=== PATIENT | female | born 1995 | race Caucasian/White ===

== ENCOUNTER 2016-08-11 00:12 | Emergency (ER) | payer OTHER ==
[2016-08-11 00:28] VITALS: PULSE 84
[2016-08-11] MEDS ORDERED: AZITHROMYCIN 250 MG TAB PO STA (00:55)
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
[2016-08-11 01:34] VITALS: BP 126/92; RESP 18; TEMP 98.2
== END 2016-08-11 01:33 | disposition home or self-care (01) ==
LOC: EC 00:12
DX: J04.0 Acute laryngitis (principal); Z86.14 Personal history of Methicillin resistant Staphylococcus aureus infection; Z88.0 Allergy status to penicillin
CPT/HCPCS: 99283

== ENCOUNTER 2016-08-28 20:58 | Emergency (ER) | payer OTHER ==
[2016-08-28 21:22] VITALS: BP 139/72; PULSE 105; RESP 20; TEMP 98.1
[2016-08-28] MEDS ORDERED: KETOROLAC 60 MG/2 ML VIAL IM STA (21:38)
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
== END 2016-08-28 22:13 | disposition home or self-care (01) ==
LOC: EC 20:58
DX: S50.11XA Contusion of right forearm, initial encounter (principal); Z88.0 Allergy status to penicillin; W23.0XXA Caught, crushed, jammed, or pinched between moving objects, initial encounter
CPT/HCPCS: 73090; 99283; 96372; J1885

== ENCOUNTER 2018-04-05 12:06 | Emergency (ER) | payer OTHER ==
[2018-04-05 12:15] VITALS: TEMP 97
[2018-04-05] MEDS ORDERED: SODIUM CHLORIDE 0.9% 1,000 ML IV STA ×2 (12:19)
[2018-04-05 12:35] LABS: Glucose,Whole Blood 127 mg/dL (75-99)
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
[2018-04-05 12:57] LABS: Basophils # (A) 0.1 k/uL (0-0.2); Basophils % (A) 1 %; Eosinophils # (A) 0.2 k/uL (0-0.7); Eosinophils % (A) 1 %; HCT 43.1 % (34.0-46.0); HGB 13.1 gm/dL (11.4-16.0); Hypochromasia Slight; Lymphocytes # (A) 4.1 k/uL (1.0-4.8); Lymphocytes % (A) 35 %; MCH 23.1 pg (25.0-35.0); MCHC 30.5 g/dL (31.0-37.0); MCV 75.7 fL (80.0-100.0); Mean Platelet Volume 8.4; Microcytosis Slight; Monocytes # (A) 0.6 k/uL (0-1.0); Monocytes % (A) 5 %; Neutrophils # (A) 6.5 k/uL (1.3-7.7); Neutrophils % (A) 56 %; Platelet Count 190 k/uL (150-450); RBC 5.69 m/uL (3.80-5.40); RDW 14.4 % (11.5-15.5); WBC 11.6 k/uL (3.8-10.6)
[2018-04-05 12:59] LABS: ALT 22 U/L (9-52); AST 16 U/L (14-36); Albumin 3.2 g/dL (3.5-5.0); Alkaline Phosphatase 59 U/L (38-126); Anion Gap 8 mmol/L; Blood Urea Nitrogen 11 mg/dL (7-17); Calcium 8.5 mg/dL (8.4-10.2); Carbon Dioxide 20 mmol/L (22-30); Chloride 112 mmol/L (98-107); Glucose 119 mg/dL (74-99); Magnesium 1.6 mg/dL (1.6-2.3); Potassium 3.8 mmol/L (3.5-5.1); Sodium 140 mmol/L (137-145); Total Bilirubin 0.4 mg/dL (0.2-1.3); Total Protein 5.8 g/dL (6.3-8.2)
[2018-04-05 13:16] LABS: Creatine Kinase <20 U/L (30-135)
[2018-04-05 13:25] LABS: Creatine Kinase MB <0.2 ng/mL (0.0-2.4)
[2018-04-05] MEDS ORDERED: SODIUM CHLORIDE 0.9% 500 ML 500 ML IV STA (13:59)
[2018-04-05] MEDS ORDERED: MECLIZINE 12.5 MG TAB PO STA (14:34)
[2018-04-05 16:08] VITALS: BP 108/62; PULSE 65; RESP 18
== END 2018-04-05 16:07 | disposition home or self-care (01) ==
LOC: EC 12:06
DX: I95.9 Hypotension, unspecified (principal); Z86.14 Personal history of Methicillin resistant Staphylococcus aureus infection; Z88.0 Allergy status to penicillin
CPT/HCPCS: 36415; 80053; 82550; 82553; 83735; 85025; 93005; 96360; 96361; 99284

== ENCOUNTER 2019-06-29 09:08 | Emergency (ER) | payer SELFPAY ==
[2019-06-29 09:12] VITALS: RESP 18
[2019-06-29] MEDS ORDERED: LIDOCAINE 1% INJ 10MG/ML (20 ML MDV) SQ ONE (09:50)
[2019-06-29 10:07] LABS: Basophils % (A) 0 %; Eosinophils # (A) 0.1 k/uL (0-0.7); Eosinophils % (A) 1 %; HCT 41.4 % (34.0-46.0); Lymphocytes # (A) 1.7 k/uL (1.0-4.8); Lymphocytes % (A) 18 %; MCH 23.3 pg (25.0-35.0); MCHC 31.4 g/dL (31.0-37.0); MCV 74.3 fL (80.0-100.0); Mean Platelet Volume 9.2; Microcytosis Slight; Monocytes # (A) 0.4 k/uL (0-1.0); Monocytes % (A) 5 %; Neutrophils # (A) 7.1 k/uL (1.3-7.7); Neutrophils % (A) 75 %; Platelet Count 202 k/uL (150-450); RBC 5.57 m/uL (3.80-5.40); RDW 13.7 % (11.5-15.5); WBC 9.5 k/uL (3.8-10.6)
[2019-06-29 10:33] LABS: ALT 16 U/L (4-34); AST 19 U/L (14-36); African American GFR (CKD) >90 (>60 ml/min/1.73 sqM); Albumin 4.5 g/dL (3.5-5.0); Alkaline Phosphatase 96 U/L (38-126); Anion Gap 14 mmol/L; Blood Urea Nitrogen 15 mg/dL (7-17); Calcium 9.4 mg/dL (8.4-10.2); Carbon Dioxide 23 mmol/L (22-30); Chloride 105 mmol/L (98-107); Glucose 96 mg/dL (74-99); Non-African American GFR(CKD) >90 (>60 ml/min/1.73 sqM); Potassium 4.3 mmol/L (3.5-5.1); Sodium 142 mmol/L (137-145); Total Bilirubin 1.2 mg/dL (0.2-1.3); Total Protein 7.9 g/dL (6.3-8.2)
[2019-06-29] MEDS ORDERED: ACET/COD 300 MG/30 MG STARTER PACK 6 TAB BTL PO STA (11:15)
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
[2019-06-29 11:44] VITALS: BP 122/86; PULSE 89; TEMP 98
== END 2019-06-29 11:43 | disposition home or self-care (01) ==
LOC: EC 09:08
DX: L02.212 Cutaneous abscess of back [any part, except buttock and flank] (principal); Z88.0 Allergy status to penicillin; Z86.14 Personal history of Methicillin resistant Staphylococcus aureus infection
CPT/HCPCS: 36415; 80053; 85025; 87070; 87205; 99283; 10060; J2001; 87077; 87186

== ENCOUNTER 2019-09-19 03:47 | Emergency (ER) | payer MEDICAID, OTHER ==
[2019-09-19] MEDS ORDERED: MORPHINE SULFATE 4 MG/ML SYRINGE IV STA (04:23)
[2019-09-19] MEDS ORDERED: SODIUM CHLORIDE 0.9% 1,000 ML IV STA ×2 (04:23)
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
[2019-09-19 04:32] LABS: Appearance,Urine Cloudy (Clear); Bacteria,Urine Occasional /hpf; Bilirubin,Urine Negative (Negative); Blood,Urine Large (Negative); Color,Urine Yellow; Glucose,Urine (UA) Negative (Negative); Ketones,Urine Negative (Negative); Leukocyte Esterase,Urine Moderate (Negative); Mucus,Urine Many /hpf; Nitrite,Urine Negative (Negative); Protein,Urine 1+ (Negative); RBC,Urine >182 /hpf (0-5); Specific Gravity,Urine 1.025 (1.001-1.035); Squamous Epithelial Cell,Urine 18 /hpf (0-4); Urobilinogen,Urine <2.0 mg/dL (<2.0); WBC,Urine 48 /hpf (0-5)
[2019-09-19 04:53] LABS: Basophils % (A) 0 %; Eosinophils # (A) 0.2 k/uL (0-0.7); Eosinophils % (A) 2 %; HCT 42.7 % (34.0-46.0); HGB 13.7 gm/dL (11.4-16.0); Hypochromasia Slight; Lymphocytes # (A) 2.6 k/uL (1.0-4.8); Lymphocytes % (A) 31 %; MCH 24.3 pg (25.0-35.0); MCHC 32.2 g/dL (31.0-37.0); MCV 75.6 fL (80.0-100.0); Microcytosis Slight; Monocytes # (A) 0.4 k/uL (0-1.0); Monocytes % (A) 5 %; Neutrophils # (A) 5.2 k/uL (1.3-7.7); Neutrophils % (A) 61 %; Platelet Count 190 k/uL (150-450); RBC 5.65 m/uL (3.80-5.40); RDW 13.9 % (11.5-15.5); WBC 8.6 k/uL (3.8-10.6)
[2019-09-19 05:13] LABS: Partial Thromboplastin Time 24.1 sec (22.0-30.0); Prothrombin Time 10.2 sec (9.0-12.0)
[2019-09-19 05:18] LABS: ALT 37 U/L (4-34); AST 29 U/L (14-36); African American GFR (CKD) >90 (>60 ml/min/1.73 sqM); Albumin 4.6 g/dL (3.5-5.0); Alkaline Phosphatase 91 U/L (38-126); Amylase 31 U/L (30-110); Anion Gap 6 mmol/L; Blood Urea Nitrogen 13 mg/dL (7-17); Calcium 9.6 mg/dL (8.4-10.2); Carbon Dioxide 28 mmol/L (22-30); Chloride 103 mmol/L (98-107); Glucose 110 mg/dL (74-99); Non-African American GFR(CKD) >90 (>60 ml/min/1.73 sqM); Potassium 4.3 mmol/L (3.5-5.1); Sodium 137 mmol/L (137-145); Total Bilirubin 0.9 mg/dL (0.2-1.3); Total Protein 7.7 g/dL (6.3-8.2)
[2019-09-19] MEDS ORDERED: KETOROLAC 30 MG/ML 1 ML VIAL IVP STA ×2 (05:23→07:39)
--- NOTE | 2019-09-19 05:24 | CT ---
EXAMINATION TYPE: CT abdomen pelvis w con DATE OF EXAM: 09/19/2019 COMPARISON: 09/02/2014 HISTORY: Abdominal pain CT DLP: mGycm Automated exposure control for dose reduction was used. CONTRAST: Performed with IV Contrast, patient injected with 100 mL of Isovue 300. Lung bases are clear. There is no pleural effusion. Heart appears normal. Liver has normal size and contour. Bile ducts are not dilated. Gallbladder appears normal. There is n o pancreatic mass. Spleen measures 12 cm. There is no adrenal mass. Kidneys show satisfactory contrast opacification. There is no hydronephrosi s. There are small densities on the initial images in both kidneys consistent with numerous nonobstru cting renal calculi in both kidneys that measure up to 7 mm. Delayed images show normal renal excret ion. Ureters are not dilated. There is no retroperitoneal adenopathy. The bladder distends smoothly. Uterus is anteverted. There is no inguinal hernia. There is no free fluid in the pelvis. There is no evidence of a pelvic mass. Appendix appears normal. There is no mesenteric edema. There is no ascites or free air. There is no sign of a bowel obstructio n. Lumbar spine appears intact. There is no compression fracture. Disc spaces are fairly normal. Bony pelvis is intact. IMPRESSION: There appears to be development of multiple bilateral nonobstructing renal calculi compared to old ex am. Borderline splenomegaly unchanged.
[2019-09-19 06:21] VITALS: TEMP 97.2
[2019-09-19] MEDS ORDERED: PROPOFOL 1,000 MG in EMPTY BAG 1 BAG IV ONE (07:02)
[2019-09-19] MEDS ORDERED: ONDANSETRON 4 MG/2 ML VIAL IVP STA (07:39)
--- NOTE | 2019-09-19 07:46 | US ---
EXAMINATION TYPE: US transvaginal DATE OF EXAM: 09/19/2019 COMPARISON: NONE CLINICAL HISTORY: pain. TECHNIQUE: Transabdominal sonographic images of the pelvis were acquired. Transvaginal sonographic i mages were medically necessary to better assess the following anatomy: Ovaries Date of LMP: 4 months ago EXAM MEASUREMENTS: Uterus: 8.9 x 4.5 x 4.4 cm Endometrial Stripe: 0.5 cm Right Ovary: 2.4 x 2.3 x 2.9 cm Left Ovary: Obscured by overlying bowel gas 1. Uterus: Anteverted, small cyst right measuring 0.5 x 0.5 x 0.4cm, incidental finding 2. Endometrium: echogenic foci measuring 2 mm, incidental calcifications. 3. Right Ovary: wnl 4. Left Ovary: Obscured by overlying bowel gas Spectral, color and waveform doppler imaging shows good arterial and venous flow within the right o vary, left ovary not seen. 5. Bilateral Adnexa: wnl 6. Posterior cul-de-sac: wnl IMPRESSION: No acute findings in the pelvis or right ovary. Left ovary is obscured by bowel gas.
[2019-09-19 08:22] VITALS: BP 119/84; PULSE 70; RESP 18
== END 2019-09-19 08:17 | disposition home or self-care (01) ==
LOC: EC 03:47
DX: N20.0 Calculus of kidney (principal); R11.0 Nausea; Z88.0 Allergy status to penicillin
CPT/HCPCS: 36415; 80053; 82150; 83605; 83690; 85025; 85610; 85730; 81001; 81025; 87086; 93976; 76830; 74177; 99284; 96374; 96375 ×2; 96376; 96361 ×4; J2270; J2405; J1885; Q9967

== ENCOUNTER 2019-11-08 22:50 | Emergency (ER) | payer MEDICAID, OTHER ==
[2019-11-08 22:54] VITALS: RESP 16
[2019-11-08] MEDS ORDERED: ONDANSETRON 4 MG/2 ML VIAL IVP STA (23:33)
[2019-11-09] MEDS ORDERED: SODIUM CHLORIDE 0.9% 1,000 ML IV STA (00:04)
[2019-11-09] MEDS ORDERED: MORPHINE SULFATE 2 MG/ML SYRINGE IVP STA (00:04)
[2019-11-09 00:26] LABS: Basophils % (A) 1 %; Eosinophils # (A) 0.1 k/uL (0-0.7); Eosinophils % (A) 1 %; HCT 41.7 % (34.0-46.0); Lymphocytes # (A) 3.2 k/uL (1.0-4.8); Lymphocytes % (A) 33 %; MCH 23.2 pg (25.0-35.0); MCHC 31.2 g/dL (31.0-37.0); MCV 74.2 fL (80.0-100.0); Microcytosis Slight; Monocytes # (A) 0.4 k/uL (0-1.0); Monocytes % (A) 5 %; Neutrophils # (A) 5.6 k/uL (1.3-7.7); Neutrophils % (A) 59 %; Platelet Count 166 k/uL (150-450); RBC 5.62 m/uL (3.80-5.40); RDW 14.1 % (11.5-15.5); WBC 9.6 k/uL (3.8-10.6)
[2019-11-09 00:35] LABS: ALT 39 U/L (4-34); AST 27 U/L (14-36); African American GFR (CKD) >90 (>60 ml/min/1.73 sqM); Albumin 4.8 g/dL (3.5-5.0); Alkaline Phosphatase 97 U/L (38-126); Amylase 51 U/L (30-110); Anion Gap 10 mmol/L; Blood Urea Nitrogen 10 mg/dL (7-17); Calcium 10.7 mg/dL (8.4-10.2); Carbon Dioxide 25 mmol/L (22-30); Chloride 102 mmol/L (98-107); Glucose 98 mg/dL (74-99); Non-African American GFR(CKD) >90 (>60 ml/min/1.73 sqM); Sodium 137 mmol/L (137-145); Total Bilirubin 0.7 mg/dL (0.2-1.3); Total Protein 7.6 g/dL (6.3-8.2)
[2019-11-09 00:41] LABS: Appearance,Urine Clear (Clear); Bilirubin,Urine Negative (Negative); Blood,Urine Negative (Negative); Color,Urine Light Yellow; Glucose,Urine (UA) Negative (Negative); Ketones,Urine Negative (Negative); Leukocyte Esterase,Urine Negative (Negative); Nitrite,Urine Negative (Negative); Protein,Urine Negative (Negative); Specific Gravity,Urine 1.013 (1.001-1.035); Urobilinogen,Urine <2.0 mg/dL (<2.0)
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
[2019-11-09 01:21] VITALS: BP 115/78; PULSE 60; TEMP 97.8
[2019-11-09] MEDS ORDERED: MORPHINE SULFATE 4 MG/ML SYRINGE IVP STA (01:22)
--- NOTE | 2019-11-09 02:02 | US ---
EXAMINATION TYPE: US abdomen limited DATE OF EXAM: 11/09/2019 COMPARISON: CT 2019 CLINICAL HISTORY: RUQ pain, Rt shoulder pain. Chest pain, N/V EXAM MEASUREMENTS: Liver Length: 17.3 cm Gallbladder Wall: 0.2 cm CBD: 0.4 cm Right Kidney: 10.4 x 4.8 x 5.3 cm Pancreas: visualized portions wnl, limited by overlying midline bowel gas Liver: measures in upper limits of normal, mildly heterogeneous Gallbladder: wnl Evidence for sonographic De La Torre's sign: no CBD: wnl Right Kidney: hyperechoic pyramids IMPRESSION: No gallstones or dilated ducts. Hyperechoic renal sinus without shadowing. This could relate to medul mariajose sponge kidney. No hydronephrosis.
--- NOTE | 2019-11-09 02:03 | XR ---
EXAMINATION TYPE: XR chest 2V DATE OF EXAM: 11/09/2019 COMPARISON: 09/28/2013 HISTORY: Abdominal pain TECHNIQUE: FINDINGS: Heart and mediastinum are normal. Lungs are clear. Diaphragm is normal. Bony thorax appears normal. There are chest leads. IMPRESSION: Normal chest. No change.
[2019-11-09] MEDS ORDERED: MAG HYDROX/AL HYDROX/SIMETH 30 ML, HYOSCYAMINE ELIXIR 10 ML, LIDOCAINE VISCOUS 2% 10 ML PO STA ×3 (02:08)
[2019-11-09] MEDS ORDERED: ONDANSETRON 4 MG ODT STARTER PACK 2 TAB BTL PO STA (02:26)
== END 2019-11-09 02:37 | disposition home or self-care (01) ==
LOC: EC 22:50
DX: R07.9 Chest pain, unspecified (principal); R11.10 Vomiting, unspecified; M25.511 Pain in right shoulder; R11.0 Nausea; R10.811 Right upper quadrant abdominal tenderness; Z88.0 Allergy status to penicillin
CPT/HCPCS: 93005; 99285; 96374; 96375; 96376; 96361; J2405; 36415; 71046; 76705; 80053; 81003; 81025; 82150; 83690; 84484; 85025

== ENCOUNTER 2019-11-29 06:07 | Day surgery (SDC) | payer MEDICAID, OTHER ==
[2019-11-23 14:40] VITALS: BMI 36.4
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
[~2019-11-29 06:07] MED LIST: CIPROFLOXACIN/DEXTROSE PMX 400 MG in DEXTROSE/WATER 1 200ML.BAG IVPB ONE; DEXAMETHASONE SOD PHOSPHATE 10 MG/ML 1 ML VIAL IV ONE; LACTATED RINGERS 1,000 ML IV SCH; LIDOCAINE 1% (10MG/ML) FOR IV START INTRADERMA PRN; MIDAZOLAM 2 MG/2 ML VIAL IV PRN; fentaNYL (PF) 50 MCG/ML 2 ML AMP IV PRN
--- NOTE | 2019-11-29 06:48 | XR ---
EXAMINATION TYPE: XR KUB DATE OF EXAM: 11/29/2019 6:43 AM CLINICAL HISTORY: Renal calculi, bilateral flank pain. TECHNIQUE: Two supine KUB images of the abdomen are obtained. COMPARISON: CT abdomen and pelvis September 19, 2019. FINDINGS: Bilateral Punctate hyperdensities or calculi on CT not clearly identified on plain films du e to size and overlying colonic fecal material. Overall nonobstructive bowel gas pattern. Visualized lung bases are clear. Visualized osseous structu res are intact. IMPRESSION: As above.
[2019-11-29] MEDS ORDERED: DEXAMETHASONE SOD PHOSPHATE 10 MG/ML 1 ML VIAL IV ONE (06:58)
[2019-11-29] MEDS ORDERED: SCOPOLAMINE 1.5MG/72HR PATCH TRANSDERM ONE (06:59)
[2019-11-29] MEDS ORDERED: fentaNYL (PF) 50 MCG/ML 2 ML AMP ONE (07:37)
[2019-11-29] MEDS ORDERED: PROPOFOL 10 MG/ML 20 ML VIAL IV ONE (07:37)
[2019-11-29] MEDS ORDERED: LIDOCAINE 1% INJ 10MG/ML (20 ML MDV) ONE (07:37)
[2019-11-29] MEDS ORDERED: MIDAZOLAM 2 MG/2 ML VIAL ONE (07:37)
[2019-11-29] MEDS ORDERED: IOPAMIDOL-370 50ML BTL IRRIGATION ONE (07:58)
--- NOTE | 2019-11-29 09:05 | FL ---
EXAMINATION TYPE: FL urography retrograde DATE OF EXAM: 11/29/2019 CLINICAL HISTORY: Bilateral renal calculi. TECHNIQUE: Fluoroscopy. COMPARISON: Same day abdominal x-ray. FINDINGS: Fluoroscopic guidance was provided during cystogram and right ureter stent insertion proce dure performed by Dr. Funez. A total of 9 seconds of fluoroscopic time was utilized during the proc edure and single spot fluoroscopic image is acquired. Single image acquired shows proximal portion of the double-J ureter stent. IMPRESSION: As Above.
[2019-11-29 09:06] VITALS: TEMP 97.2
--- NOTE | 2019-11-29 09:06 | P.OP ---
Date of Procedure: 11/29/19 Preoperative Diagnosis: bilateral renal calculi Postoperative Diagnosis: same Procedure(s) Performed: cystoscopy, right reterograde pyelogram, ureteroscopy, holmium laser lithotripsy, stone basketting and stent placement Implants: [id number] cm stent on string Anesthesia: DAWSON Surgeon: Kevin Funez Estimated Blood Loss (ml): 5 Pathology: other (renal calculi) Condition: stable Disposition: PACU Indications for Procedure: Ms. Choudhary is a 24 yo female with hx of bilateral renal calculi. She has greater stone burden on the right side. I discussed with her the option of doing right sided ureteroscopy. Discussed the risk which includes but not limited to bleeding, infection and injury to the. I also discussed risk from anesthesia. She understood all risks and agreed to proceed. Operative Findings: significant parenchymal calcification throughout all the renal calyces. multiple small stone loosely adherent to the renal clayx, those were dusted using the homium laser Description of Procedure: Patient was brought to the operating room general anesthesia was induced. She was prepped and draped in sterile fashion placed in dorsal lithotomy position. Cystoscope fitted with a 21 sheath was inserted per urethra, cystoscopy was performed showed no abnormality of within the bladder. Attention was then carried to the right ureteral orifice which was intubated with a 6-Uzbek open ended catheter, retrograde peylogram was performed which showed no filling defect along the course of the ureter. At this time a sensor wire was advanced through the catheter catheter was removed with the wire in place. Next a 11 x 13-Uzbek access sheath was passed over the wire. Next a flexible ureteroscope was inserted significant parenchymal calcification throughout all the renal calyces were appreciated on renoscopy. multiple small stone loosely adherent to the renal clayx, those were dusted using the homium laser. very small fragments were noticed after dusting, some of those fragments were removed for stone analysis. Repeat renoscopy was performed to ensure all calyces were evaluated for any fragments or additional stone. Pullback ureteroscopy was performed which showed no injury to the ureter or any ureteral fragments. At this time a 6-Uzbek by 24 cm stent was passed over the wire, proximal curl was visualized on fluoroscopy and distal curl was visualized using the cystoscope. stent left on string. The bladder was emptied and the case. The patient was awakened from anesthesia and taken recovery in stable condition
[2019-11-29] MEDS ORDERED: HYDROmorphone 0.5 MG/0.5 ML SYRINGE IVP ONE ×3 (09:21→09:40)
[2019-11-29] MEDS ORDERED: ONDANSETRON 4 MG/2 ML VIAL IVP ONE ×2 (09:21→09:42)
[2019-11-29] MEDS ORDERED: METOCLOPRAMIDE 5 MG/ML 2 ML VIAL ONE (10:25)
[2019-11-29] MEDS ORDERED: METOCLOPRAMIDE 5 MG/ML 2 ML VIAL IVP ONE (10:33)
[2019-11-29] MEDS ORDERED: KETOROLAC 30 MG/ML 1 ML VIAL IVP ONE (10:45)
[2019-11-29] MEDS ORDERED: KETOROLAC 30 MG/ML 1 ML VIAL ONE (10:46)
[2019-11-29 11:58] VITALS: BP 120/78; PULSE 74; RESP 16
== END 2019-11-29 11:55 | disposition home or self-care (01) ==
LOC: OR 06:07
PROVIDERS: ATTEND Urology
DX: N20.0 Calculus of kidney (principal); J45.909 Unspecified asthma, uncomplicated; E11.9 Type 2 diabetes mellitus without complications; F41.9 Anxiety disorder, unspecified; F32.9 Major depressive disorder, single episode, unspecified; Z87.442 Personal history of urinary calculi; Z88.0 Allergy status to penicillin; Z86.14 Personal history of Methicillin resistant Staphylococcus aureus infection; Z86.32 Personal history of gestational diabetes; Z90.89 Acquired absence of other organs; Z98.51 Tubal ligation status; Z98.891 History of uterine scar from previous surgery; Z87.81 Personal history of (healed) traumatic fracture
CPT/HCPCS: 81025; 82365; 74420; 74018; 52356; C2625; C1758; C1769 ×2; J2250; J1100; J2765; J2405; J2001; J3010; J1885; J0744; J2704; J1170; Q9967

== ENCOUNTER → 2020-02-08 | Outpatient (CLI) | payer MEDICAID, OTHER | END | disposition home or self-care (01) | LOC: LABWHC1 11:48 | PROVIDERS: ATTEND Pediatrics Pediatric Infectious Diseases | DX: Z03.818 Encounter for observation for suspected exposure to other biological agents ruled out (principal) | CPT/HCPCS: U0003; C9803 ==

== ENCOUNTER 2020-11-13 09:45 | Emergency (ER) | payer OTHER ==
[2020-11-13 10:05] VITALS: RESP 18; TEMP 98
[2020-11-13] MEDS ORDERED: SODIUM CHLORIDE 0.9% 1,000 ML IV ONE (10:42)
[2020-11-13] MEDS ORDERED: ONDANSETRON 4 MG/2 ML VIAL IVP STA (10:42)
--- NOTE | 2020-11-13 10:53 | ED ---
General Adult HPI - General Chief complaint: Dizziness Stated complaint: possible kidney stones Time Seen by Provider: 11/13/20 10:29 Source: patient, RN notes reviewed Mode of arrival: ambulatory Limitations: no limitations - History of Present Illness Initial comments: 25-year-old female presents emergency from chief complaint of head injury, nausea vomiting dizziness. Patient states that she slipped on the ground hit her head on some rocks a week ago. She's had constant headaches started having some nausea vomiting no abdominal plain no flank pain no dysuria denies any chance . She had no photophobia. Patient has had prior concussion which she states felt similar to. Patient denies any blood thinners denies chest pain or palpitations. - Related Data Home Medications Medication Instructions Recorded Confirmed Albuterol Sulfate [Proair Hfa] 2 puff INHALATION RT-QID PRN 11/13/20 11/13/20 Ergocalciferol (Vitamin D2) 1,250 mcg PO MO 11/13/20 11/13/20 [Drisdol (50,000 Iu)] metFORMIN HCL 500 mg PO BID 11/13/20 11/13/20 Previous Rx's Medication Instructions Recorded Cephalexin [Keflex] 500 mg PO Q8HR #21 cap 11/13/20 Ondansetron Odt [Zofran Odt] 4 mg PO Q8HR PRN #10 tab 11/13/20 Allergies Allergy/AdvReac Type Severity Reaction Status Date / Time amoxicillin Allergy Rash/Hives Verified 11/13/20 10:41 Penicillins Allergy Rash/Hives Verified 11/13/20 10:41 Review of Systems ROS Statement: Those systems with pertinent positive or pertinent negative responses have been documented in the HPI. ROS Other: All systems not noted in ROS Statement are negative. Past Medical History Past Medical History: Asthma, Diabetes Mellitus Additional Past Medical History / Comment(s): Hx fractured right ankle, hx Gestational Diabetes, kidney stones currently and past. History of Any Multi-Drug Resistant Organisms: MRSA Date of last positivie culture/infection: 12/04 MDRO Source:: back of neck Past Surgical History: Section, Tonsillectomy, Tubal Ligation Additional Past Surgical History / Comment(s): Section X3, lithotripsy Past Anesthesia/Blood Transfusion Reactions: Motion Sickness Past Psychological History: Anxiety, Depression Smoking Status: Current every day smoker Past Alcohol Use History: Occasional Past Drug Use History: Marijuana - Past Family History Father Family Medical History: No Reported History General Exam Limitations: no limitations General appearance: alert, in no apparent distress Head exam: Present: atraumatic, normocephalic, normal inspection Eye exam: Present: normal appearance, PERRL, EOMI. Absent: scleral icterus, conjunctival injection, periorbital swelling ENT exam: Present: normal exam, normal oropharynx, mucous membranes moist Neck exam: Present: normal inspection, full ROM. Absent: tenderness, meningismus, lymphadenopathy Respiratory exam: Present: normal lung sounds bilaterally. Absent: respiratory distress, wheezes, rales, rhonchi, stridor Cardiovascular Exam: Present: regular rate, normal rhythm, normal heart sounds. Absent: systolic murmur, diastolic murmur, rubs, gallop, clicks Back exam: Absent: CVA tenderness (R), CVA tenderness (L) Neurological exam: Present: alert, oriented X3, CN II-XII intact, reflexes normal, other (Finger nose intact bilaterally). Absent: motor sensory deficit Course Vital Signs 11/13/20 10:02 Temperature 98 F Pulse Rate 91 Respiratory 18 Rate Blood Pressure 137/105 O2 Sat by Pulse 98 Oximetry Medical Decision Making - Medical Decision Making 25-year-old presented for head injury, nausea vomiting. Patient CT is unremarkable. I do believe that she has a mild concussion. Patient does have evidence of urinary tract infection was given Rocephin will be discharged on Keflex return parameters were discussed. - Lab Data Result diagrams: 11/13/20 10:44 11/13/20 10:44 Lab Results 11/13/20 11/13/20 11/13/20 Range/Units 10:44 10:44 10:44 WBC 7.3 (3.8-10.6) k/uL RBC 5.40 (3.80-5.40) m/uL Hgb 13.1 (11.4-16.0) gm/dL Hct 41.2 (34.0-46.0) % MCV 76.4 L (80.0-100.0) fL MCH 24.4 L (25.0-35.0) pg MCHC 31.9 (31.0-37.0) g/dL RDW 15.0 (11.5-15.5) % Plt Count 180 (150-450) k/uL MPV 8.9 Neutrophils % 72 % Lymphocytes % 21 % Monocytes % 5 % Eosinophils % 1 % Basophils % 0 % Neutrophils # 5.2 (1.3-7.7) k/uL Lymphocytes # 1.5 (1.0-4.8) k/uL Monocytes # 0.4 (0-1.0) k/uL Eosinophils # 0.1 (0-0.7) k/uL Basophils # 0.0 (0-0.2) k/uL Microcytosis Slight Sodium (137-145) mmol/L Potassium (3.5-5.1) mmol/L Chloride (98-107) mmol/L Carbon Dioxide (22-30) mmol/L Anion Gap mmol/L BUN (7-17) mg/dL Creatinine (0.52-1.04) mg/dL Est GFR (CKD-EPI)AfAm (>60 ml/min/1.73 sqM) Est GFR (CKD-EPI)NonAf (>60 ml/min/1.73 sqM) Glucose (74-99) mg/dL Calcium (8.4-10.2) mg/dL Total Bilirubin (0.2-1.3) mg/dL AST (14-36) U/L ALT (4-34) U/L Alkaline Phosphatase (38-126) U/L Total Protein (6.3-8.2) g/dL Albumin (3.5-5.0) g/dL Urine Color Yellow Urine Appearance Cloudy H (Clear) Urine pH 7.5 (5.0-8.0) Ur Specific [place] 1.021 (1.001-1.035) Urine Protein Trace H (Negative) Urine Glucose (UA) Negative (Negative) Urine Ketones Negative (Negative) Urine Blood Moderate H (Negative) Urine Nitrite Positive H (Negative) Urine Bilirubin Negative (Negative) Urine Urobilinogen 2.0 (<2.0) mg/dL Ur Leukocyte Esterase Small H (Negative) Urine RBC 1 (0-5) /hpf Urine WBC 12 H (0-5) /hpf Ur Squamous Epith Cells 5 H (0-4) /hpf Urine Bacteria Rare H (None) /hpf Urine Mucus Few H (None) /hpf Urine HCG, Qual Not Detected (Not Detectd) 11/13/20 Range/Units 10:44 WBC (3.8-10.6) k/uL RBC (3.80-5.40) m/uL Hgb (11.4-16.0) gm/dL Hct (34.0-46.0) % MCV (80.0-100.0) fL MCH (25.0-35.0) pg MCHC (31.0-37.0) g/dL RDW (11.5-15.5) % Plt Count (150-450) k/uL MPV Neutrophils % % Lymphocytes % % Monocytes % % Eosinophils % % Basophils % % Neutrophils # (1.3-7.7) k/uL Lymphocytes # (1.0-4.8) k/uL Monocytes # (0-1.0) k/uL Eosinophils # (0-0.7) k/uL Basophils # (0-0.2) k/uL Microcytosis Sodium 143 (137-145) mmol/L Potassium 4.3 (3.5-5.1) mmol/L Chloride 105 (98-107) mmol/L Carbon Dioxide 26 (22-30) mmol/L Anion Gap 12 mmol/L BUN 12 (7-17) mg/dL Creatinine 0.57 (0.52-1.04) mg/dL Est GFR (CKD-EPI)AfAm >90 (>60 ml/min/1.73 sqM) Est GFR (CKD-EPI)NonAf >90 (>60 ml/min/1.73 sqM) Glucose 120 H (74-99) mg/dL Calcium 9.4 (8.4-10.2) mg/dL Total Bilirubin 0.5 (0.2-1.3) mg/dL AST 42 H (14-36) U/L ALT 41 H (4-34) U/L Alkaline Phosphatase 103 (38-126) U/L Total Protein 8.2 (6.3-8.2) g/dL Albumin 4.9 (3.5-5.0) g/dL Urine Color Urine Appearance (Clear) Urine pH (5.0-8.0) Ur Specific [place] (1.001-1.035) Urine Protein (Negative) Urine Glucose (UA) (Negative) Urine Ketones (Negative) Urine Blood (Negative) Urine Nitrite (Negative) Urine Bilirubin (Negative) Urine Urobilinogen (<2.0) mg/dL Ur Leukocyte Esterase (Negative) Urine RBC (0-5) /hpf Urine WBC (0-5) /hpf Ur Squamous Epith Cells (0-4) /hpf Urine Bacteria (None) /hpf Urine Mucus (None) /hpf Urine HCG, Qual (Not Detectd) Disposition Clinical Impression: UTI (urinary tract infection), Concussion, Nausea & vomiting Disposition: HOME SELF-CARE Condition: Stable Instructions (If sedation given, give patient instructions): Concussion (ED), Urinary Tract Infection in Women (ED) Additional Instructions: Please return to the Emergency Department if symptoms worsen or any other concerns. Prescriptions: Cephalexin [Keflex] 500 mg PO Q8HR #21 cap Ondansetron Odt [Zofran Odt] 4 mg PO Q8HR PRN #10 tab PRN Reason: Nausea Is patient prescribed a controlled substance at d/c from ED?: No Referrals: None,Stated [Primary Care Provider] - 1-2 days Annette Manuel MD [REFERRING] - 1-2 days Time of Disposition: 11:56
[2020-11-13 11:05] LABS: Basophils % (A) 0 %; Eosinophils # (A) 0.1 k/uL (0-0.7); Eosinophils % (A) 1 %; HCT 41.2 % (34.0-46.0); HGB 13.1 gm/dL (11.4-16.0); Lymphocytes # (A) 1.5 k/uL (1.0-4.8); Lymphocytes % (A) 21 %; MCH 24.4 pg (25.0-35.0); MCHC 31.9 g/dL (31.0-37.0); MCV 76.4 fL (80.0-100.0); Mean Platelet Volume 8.9; Microcytosis Slight; Monocytes # (A) 0.4 k/uL (0-1.0); Monocytes % (A) 5 %; Neutrophils # (A) 5.2 k/uL (1.3-7.7); Neutrophils % (A) 72 %; Platelet Count 180 k/uL (150-450); WBC 7.3 k/uL (3.8-10.6)
[2020-11-13 11:13] LABS: Appearance,Urine Cloudy (Clear); Bacteria,Urine Rare /hpf; Bilirubin,Urine Negative (Negative); Blood,Urine Moderate (Negative); Color,Urine Yellow; Glucose,Urine (UA) Negative (Negative); Ketones,Urine Negative (Negative); Leukocyte Esterase,Urine Small (Negative); Mucus,Urine Few /hpf; Nitrite,Urine Positive (Negative); PH, Urine 7.5 (5.0-8.0); Protein,Urine Trace (Negative); RBC,Urine 1 /hpf (0-5); Specific Gravity,Urine 1.021 (1.001-1.035); Squamous Epithelial Cell,Urine 5 /hpf (0-4); WBC,Urine 12 /hpf (0-5)
[2020-11-13 11:16] LABS: ALT 41 U/L (4-34); AST 42 U/L (14-36); African American GFR (CKD) >90 (>60 ml/min/1.73 sqM); Albumin 4.9 g/dL (3.5-5.0); Alkaline Phosphatase 103 U/L (38-126); Anion Gap 12 mmol/L; Blood Urea Nitrogen 12 mg/dL (7-17); Calcium 9.4 mg/dL (8.4-10.2); Carbon Dioxide 26 mmol/L (22-30); Chloride 105 mmol/L (98-107); Glucose 120 mg/dL (74-99); Non-African American GFR(CKD) >90 (>60 ml/min/1.73 sqM); Potassium 4.3 mmol/L (3.5-5.1); Sodium 143 mmol/L (137-145); Total Bilirubin 0.5 mg/dL (0.2-1.3); Total Protein 8.2 g/dL (6.3-8.2)
--- NOTE | 2020-11-13 11:49 | CT ---
EXAMINATION TYPE: CT brain wo con DATE OF EXAM: 11/13/2020 COMPARISON: 09/08/2015 HISTORY: head injury, pain, dizziness CT DLP: 1052.[address] of the brain was performed. The ventricles, basal cisterns and sulci overlying the cerebral convexities demonstrate a normal appe arance. There is no evidence for intracranial hemorrhage or sulcal effacement. No mass effects are seen. Osseous calvarium is intact. If symptoms persist consider MRI as clinically warranted. IMPRESSION: 1. No acute intracranial process is seen at this time.
[2020-11-13] MEDS ORDERED: cefTRIAXone IN SWFI 1,000 MG/10 ML SYRINGE IVP STA (11:54)
[2020-11-13] MEDS ORDERED: METOCLOPRAMIDE 5 MG/ML 2 ML VIAL IVP STA (12:02)
[2020-11-13] MEDS ORDERED: diphenhydrAMINE 50 MG/ML 1 ML VIAL IVP STA (12:02)
[2020-11-13] MEDS ORDERED: MECLIZINE 12.5 MG TAB PO STA (12:02)
[2020-11-13 12:17] VITALS: BP 129/87; PULSE 88
== END 2020-11-13 12:30 | disposition home or self-care (01) ==
LOC: EC 09:45
DX: S06.0X9A Concussion with loss of consciousness of unspecified duration, initial encounter (principal); N39.0 Urinary tract infection, site not specified; J45.909 Unspecified asthma, uncomplicated; E11.9 Type 2 diabetes mellitus without complications; F32.9 Major depressive disorder, single episode, unspecified; F41.9 Anxiety disorder, unspecified; F12.90 Cannabis use, unspecified, uncomplicated; F17.200 Nicotine dependence, unspecified, uncomplicated; Z87.442 Personal history of urinary calculi; Z79.84 Long term (current) use of oral hypoglycemic drugs; Z79.899 Other long term (current) drug therapy; Z88.0 Allergy status to penicillin; W22.8XXA Striking against or struck by other objects, initial encounter
CPT/HCPCS: 36415; 80053; 85025; 81001; 81025; 87086; 70450; 99284; 96374; 96375 ×3; 96361; J1200; J2765; J2405; J0696

== ENCOUNTER 2023-07-26 19:30 | Emergency (ER) | payer OTHER ==
[2023-07-26] MEDS: FAMOTIDINE 20 MG TAB PO STA (19:53)
[2023-07-26] MEDS: diphenhydrAMINE 50 MG/ML 1 ML VIAL IVP STA (19:59)
[2023-07-26] MEDS: methylPREDNISolone SOD SUCCI 125 MG/2 ML VIAL IV STA (19:59)
[2023-07-26] MEDS: diphenhydrAMINE 50 MG/ML 1 ML VIAL IM STA (20:00)
[2023-07-26] MEDS: methylPREDNISolone SOD SUCCI 125 MG/2 ML VIAL IM STA (20:00)
[2023-07-26 20:38] VITALS: RESP 16
--- NOTE | 2023-07-26 21:30 | ED ---
Allergic Reaction HPI - General Chief complaint: Allergic Reaction Stated complaint: Allergic reaction, FARA Time Seen by Provider: 07/26/23 19:35 Source: patient Mode of arrival: ambulatory Limitations: no limitations - History of Present Illness Initial Comments: 27-year-old female presenting with chief complaint of allergic reaction. Patient states that around 2 hours ago after eating dinner she started having swelling to the lips and hives. She states that she had chicken and potato salad, she has had these foods before. No new medications or other products. She states that her throat feels "scratchy". No difficulty breathing. - Related Data Home Medications Medication Instructions Recorded Confirmed Albuterol Sulfate [Proair Hfa] 2 puff INHALATION RT-QID PRN 11/13/20 11/13/20 Ergocalciferol (Vitamin D2) 1,250 mcg PO MO 11/13/20 11/13/20 [Drisdol (50,000 Iu)] metFORMIN HCL 500 mg PO BID 11/13/20 11/13/20 Previous Rx's Medication Instructions Recorded Cephalexin [Keflex] 500 mg PO Q8HR #21 cap 11/13/20 Ondansetron Odt [Zofran Odt] 4 mg PO Q8HR PRN #10 tab 11/13/20 Allergies Allergy/AdvReac Type Severity Reaction Status Date / Time amoxicillin Allergy Rash/Hives Verified 11/13/20 10:41 Penicillins Allergy Rash/Hives Verified 11/13/20 10:41 Review of Systems ROS Statement: Those systems with pertinent positive or pertinent negative responses have been documented in the HPI. ROS Other: All systems not noted in ROS Statement are negative. Past Medical History Past Medical History: Asthma, Diabetes Mellitus Additional Past Medical History / Comment(s): Hx fractured right ankle, hx Gestational Diabetes, kidney stones currently and past. History of Any Multi-Drug Resistant Organisms: MRSA Date of last positivie culture/infection: 12/04 MDRO Source:: back of neck Past Surgical History: Section, Tonsillectomy, Tubal Ligation Additional Past Surgical History / Comment(s): Section X3, lithotripsy Past Anesthesia/Blood Transfusion Reactions: Motion Sickness Past Psychological History: Anxiety, Depression Smoking Status: Current every day smoker Past Alcohol Use History: Occasional Past Drug Use History: Marijuana - Past Family History Father Family Medical History: No Reported History General Exam Limitations: no limitations General appearance: alert, in no apparent distress Head exam: Present: atraumatic, normocephalic Eye exam: Present: normal appearance, EOMI ENT exam: Present: mucous membranes moist Expanded Mouth exam: Present: other (Patient has swelling of the lips. No swelling of the uvula or midline shift seen.). Absent: drooling, trismus, muffled voice Neck exam: Present: normal inspection. Absent: meningismus Respiratory exam: Present: normal lung sounds bilaterally. Absent: respiratory distress, wheezes, rales, rhonchi, stridor Cardiovascular Exam: Present: regular rate, normal rhythm, normal heart sounds. Absent: systolic murmur, diastolic murmur, rubs, gallop, clicks Neurological exam: Present: alert, oriented X3 Psychiatric exam: Present: normal affect, normal mood Skin exam: Present: urticaria Course Vital Signs 07/26/23 07/26/23 07/26/23 19:32 20:11 21:05 Temperature 97.9 F Pulse Rate 91 84 82 Respiratory 18 16 16 Rate Blood Pressure 138/98 136/82 140/88 O2 Sat by Pulse 100 99 98 Oximetry 07/26/23 21:38 Temperature 98.8 F Pulse Rate 82 Respiratory 16 Rate Blood Pressure 143/88 O2 Sat by Pulse 99 Oximetry Medical Decision Making - Medical Decision Making Was pt. sent in by a medical professional or institution ([facility], [facility], urgent care, hospital, or [facility]...) When possible be specific @ -No Did you speak to anyone other than the patient for history (EMS, parent, family, police, friend...)? What history was obtained from this source @ -No Did you review nursing and triage notes (agree or disagree)? Why? @ -I reviewed and agree with nursing and triage notes Were old charts reviewed (outside hosp., previous admission, EMS record, old EKG, old radiological studies, urgent care reports/EKG's, [facility] records)? Report findings @ -No old charts were reviewed Differential Diagnosis (chest pain, altered mental status, abdominal pain women, abdominal pain men, vaginal bleeding, weakness, fever, dyspnea, syncope, headache, dizziness, GI bleed, back pain, seizure, CVA, palpatations, mental health, musculoskeletal)? @ -Differential includes general allergic reaction, anaphylaxis, infectious process, trauma, this is not an all-inclusive list EKG interpreted by me (3pts min.). @ -As above X-rays interpreted by me (1pt min.). @ -None done CT interpreted by me (1pt min.). @ -None done U/S interpreted by me (1pt. min.). @ -None done What testing was considered but not performed or refused? (CT, X-rays, U/S, labs)? Why? @ -None What meds were considered but not given or refused? Why? @ -None Did you discuss the management of the patient with other professionals (professionals i.e. Dr., PA, [employer], lab, RT, psych nurse, social media community manager, software engineer mobile, teacher, chief communications officer, special education case manager)? Give summary @ -No Was smoking cessation discussed for >3mins.? @ -No Was critical care preformed (if so, how long)? @ -No Were there social determinants of health that impacted care today? How? (Homelessness, low income, unemployed, alcoholism, drug addiction, transportation, low edu. Level, literacy, decrease access to med. care, [facility], rehab)? @ -No Was there de-escalation of care discussed even if they declined (Discuss DNR or withdrawal of care, Hospice)? DNR status @ -No What co-morbidities impacted this encounter? (DM, HTN, Smoking, COPD, CAD, Cancer, CVA, ARF, Chemo, Hep., AIDS, mental health diagnosis, sleep apnea, morbid obesity)? @ -None Was patient admitted / discharged? Hospital course, mention meds given and route, prescriptions, significant lab abnormalities, going to OR and other pertinent info. @ -27-year-old female presenting with chief complaint of allergic reaction. She is having swelling of the lips and hives. History and physical exam are conducted. Hives are noted on the trunk and extremities. There is angioedema seen in portions of the lips. No swelling of the uvula. No stridor. No midline shift. Heart and lungs are clear to auscultation with no stridor or wheezing. Patient took Benadryl 25 mg prior to arrival. She is given Benadryl 25 mg here, Solu-Medrol 125mg, and Pepcid 20mg. On reassessment she reports significant improvement in her symptoms, her lip swelling has noticeably decreased. She is observed for 2 hours with no recurrence of symptoms. She is discharged home. Follow-up with PCP. Report back to ER with any new or worsening symptoms. Discussed return parameters and answered all questions. Patient conveyed verbal understanding and agreed to the plan. I discussed this case in detail with my attending Dr. Pardo Undiagnosed new problem with uncertain prognosis? @ -No Drug Therapy requiring intensive monitoring for toxicity (Heparin, Nitro, Insulin, Cardizem)? @ -No Were any procedures done? @ -No Diagnosis/symptom? @ -Allergic reaction Acute, or Chronic, or Acute on Chronic? @ -Acute Uncomplicated (without systemic symptoms) or Complicated (systemic symptoms)? @ -Uncomplicated Side effects of treatment? @ -No Exacerbation, Progression, or Severe Exacerbation? @ -No Poses a threat to life or bodily function? How? (Chest pain, [place], [place], pneumonia, PE, COPD, DKA, ARF, appy, cholecystitis, CVA, Diverticulitis, Homicidal, Suicidal, threat to staff... and all critical care pts) @ -Low likelihood Disposition Clinical Impression: Allergic reaction Disposition: HOME SELF-CARE Condition: Good Instructions (If sedation given, give patient instructions): General Allergic Reaction (ED) Additional Instructions: Follow-up with PCP. Report back to ER with any new or worsening symptoms. Take Benadryl as needed. Is patient prescribed a controlled substance at d/c from ED?: No Referrals: Emeterio Bunch MD [Primary Care Provider] - 1-2 days Time of Disposition: 21:30
[2023-07-26 21:54] VITALS: BP 143/88; PULSE 82; TEMP 98.8
== END 2023-07-26 21:40 | disposition home or self-care (01) ==
LOC: EC 19:30
DX: R09.89 Other specified symptoms and signs involving the circulatory and respiratory systems (principal); T78.1XXA Other adverse food reactions, not elsewhere classified, initial encounter; F17.200 Nicotine dependence, unspecified, uncomplicated; Z88.0 Allergy status to penicillin
CPT/HCPCS: 99283; 96374; 96375; J1200; J2930

== ENCOUNTER 2024-02-09 22:49 | Observation (INO) | payer OTHER ==
--- NOTE | 2024-02-09 23:44 | ED ---
Chest Pain HPI - General Chief Complaint: Chest Pain Stated Complaint: chest pain Time Seen by Provider: 02/09/24 23:33 Source: patient Mode of arrival: wheelchair Limitations: no limitations - History of Present Illness Initial Comments: Patient is a 28-year-old woman with history of asthma who presents to have evaluation for shortness of breath and dyspnea. The patient notes that she was in her usual state health until yesterday in the morning. She woke up and felt like she was a little short of breath compared with her baseline. In the afternoon or evening she noticed she was having some pain on the left side of her chest. Little worse with taking a deep breath. Tonight the pain has worsened and she is feeling more short of breath. In reviewing her recent history, the patient had an episode of bronchitis about 2 weeks ago which was treated and she had felt better. She is at the time she was having fevers, coughing and wheezing. About 3 to 4 days ago she noticed that she was having some leg pain and her legs felt swollen. It started on the left side and then it was involving both legs. She states that she had gone to an emergency department 2 days ago but they were not able to see her so she went home. MD Complaint: chest pain Onset/Timin -: days(s) Onset: during rest Pain Location: left chest Pain Radiation: none Severity: severe Quality: aching Consistency: constant Improves With: nothing Worsens With: inspiration, palpation, movement Anginal Symptoms: dyspnea Treatments Prior to Arrival: none - Related Data Home Medications Medication Instructions Recorded Confirmed Albuterol Sulfate [Proair Hfa] 2 puff INHALATION RT-QID PRN 11/13/20 02/10/24 Dextroamphetamine/Amphetamine 12.5 mg PO DAILY 02/10/24 02/10/24 [Adderall] Fluticasone/Umeclidin/Vilanter 1 puff INHALATION DIRECTED 02/10/24 02/10/24 [Trelemathew Ellipta 200-62.5-25] Previous Rx's Medication Instructions Recorded Azithromycin [Zithromax] 0 mg PO DIRECTED #6 tab 02/10/24 Levofloxacin [Levaquin] 500 mg PO DAILY 10 Days #10 tab 02/11/24 Allergies Allergy/AdvReac Type Severity Reaction Status Date / Time amoxicillin Allergy Rash/Hives Verified 02/10/24 07:45 Penicillins Allergy Rash/Hives Verified 02/10/24 07:45 Review of Systems ROS Statement: Those systems with pertinent positive or pertinent negative responses have been documented in the HPI. ROS Other: All systems not noted in ROS Statement are negative. Constitutional: Denies: fever, chills, weakness ENT: Denies: congestion Respiratory: Reports: as per HPI, dyspnea. Denies: cough, wheezes, hemoptysis Cardiovascular: Reports: as per HPI, chest pain. Denies: palpitations, orthopnea, edema, syncope Gastrointestinal: Denies: abdominal pain, vomiting, diarrhea Genitourinary: Denies: dysuria, frequency, hematuria Musculoskeletal: Reports: myalgia. Denies: back pain Skin: Denies: rash Neurological: Denies: headache, weakness, numbness EKG Findings - EKG Results: EKG: interpreted by MCKAYD, sinus rhythm, normal axis, normal QRS, normal ST/T, no acute changes EKG shows: tachycardia (Rate 110 bpm) Past Medical History Past Medical History: Asthma, Diabetes Mellitus Additional Past Medical History / Comment(s): Hx fractured right ankle, hx Gestational Diabetes, kidney stones currently and past. History of Any Multi-Drug Resistant Organisms: MRSA Date of last positivie culture/infection: 12/04 MDRO Source:: back of neck Past Surgical History: Section, Tonsillectomy, Tubal Ligation Additional Past Surgical History / Comment(s): Section X3, lithotripsy Past Anesthesia/Blood Transfusion Reactions: Motion Sickness Past Psychological History: Anxiety, Depression Smoking Status: Current every day smoker Past Alcohol Use History: Occasional Past Drug Use History: Marijuana - Past Family History Father Family Medical History: No Reported History General Exam Limitations: no limitations General appearance: alert, in no apparent distress Head exam: Present: atraumatic, normocephalic Eye exam: Present: normal appearance. Absent: scleral icterus, conjunctival injection Neck exam: Present: normal inspection Respiratory exam: Present: normal lung sounds bilaterally, chest wall tender ness. Absent: respiratory distress, wheezes, rales, rhonchi, stridor, accessory muscle use, decreased breath sounds, prolonged expiratory Cardiovascular Exam: Present: normal rhythm, tachycardia. Absent: bradycardia, irregular rhythm, systolic murmur, diastolic murmur, rubs, gallop GI/Abdominal exam: Present: soft. Absent: distended, tenderness, guarding, rebound, rigid, mass Extremities exam: Present: normal inspection, normal capillary refill. Absent: pedal edema, calf tenderness Back exam: Present: normal inspection. Absent: CVA tenderness (R), CVA tenderness (L) Neurological exam: Present: alert Skin exam: Present: warm, dry, intact, normal color. Absent: rash Course Vital Signs 02/09/24 02/10/24 02/10/24 22:56 00:03 01:39 Temperature 98.2 F Pulse Rate 123 H 105 H 86 Pulse Rate [ Pulse Oximetery ] Respiratory 20 20 20 Rate Blood Pressure 160/115 124/97 113/69 Blood Pressure [Right Arm] O2 Sat by Pulse 99 98 100 Oximetry 02/10/24 02/10/24 02/10/24 04:25 06:30 09:49 Temperature 97.0 F L 98.0 F Pulse Rate 77 73 82 Pulse Rate [ Pulse Oximetery ] Respiratory 18 18 16 Rate Blood Pressure 99/74 125/84 118/87 Blood Pressure [Right Arm] O2 Sat by Pulse 99 100 100 Oximetry 02/10/24 02/10/24 02/10/24 12:50 14:41 14:43 Temperature 97.4 F L 98.2 F Pulse Rate 82 Pulse Rate [ 77 Pulse Oximetery ] Respiratory 16 18 16 Rate Blood Pressure 131/85 Blood Pressure 128/89 [Right Arm] O2 Sat by Pulse 99 100 Oximetry Chest Pain MDM - MDM The patient had chest x-ray that I interpreted to show presence of acute infiltrate, no pneumothorax or congestive heart failure evident. Was pt. sent in by a medical professional or institution (SAMIR Alvarado, CONSTRUCTION SPECIALIST, urgent care, hospital, or [facility]...) When possible be specific @ -[No] Did you speak to anyone other than the patient for history (EMS, parent, family, police, friend...)? What history was obtained from this source @ -[No] Did you review nursing and triage notes (agree or disagree)? Why? @ -[I reviewed and agree with nursing and triage notes] Were old charts reviewed (outside hosp., previous admission, EMS record, old EKG, old radiological studies, urgent care reports/EKG's, [facility] records)? Report findings @ -[No old charts were reviewed] Differential Diagnosis (chest pain, altered mental status, abdominal pain women, abdominal pain men, vaginal bleeding, weakness, fever, dyspnea, syncope, headache, dizziness, GI bleed, back pain, seizure, CVA, palpatations, mental health, musculoskeletal)? @ -[Differential Dyspnea: Coronary syndrome, arrhythmia, tamponade, asthma, COPD, pulmonary embolism, pneumonia, pneumothorax, pulmonary effusion, anaphylaxis, diabetic ketoacidosis, flailed chest, pulmonary contusion, diaphragmatic rupture, anemia, neuromuscular, this is not meant to be an all-inclusive list. EKG interpreted by me (3pts min.). @ -[I interpreted as above] X-rays interpreted by me (1pt min.). @ -[I interpreted as above CT interpreted by me (1pt min.). @ -[None done] U/S interpreted by me (1pt. min.). @ -[None done] What testing was considered but not performed or refused? (CT, X-rays, U/S, labs)? Why? @ -[None] What meds were considered but not given or refused? Why? @ -[None] Did you discuss the management of the patient with other professionals (professionals i.e. , PA, CONSTRUCTION SPECIALIST, lab, RT, psych nurse, director social welfare, division traffic superintendent, teacher, cash management officer, correctional case records supervisor)? Give summary @ -Case is discussed with admitting physician and treatment recommendations incorporated Was smoking cessation discussed for >3mins.? @ -[No] Was critical care preformed (if so, how long)? @ -[No] Were there social determinants of health that impacted care today? How? (Homelessness, low income, unemployed, alcoholism, drug addiction, transportation, low edu. Level, literacy, decrease access to med. care, correction, rehab)? @ -[No] Was there de-escalation of care discussed even if they declined (Discuss DNR or withdrawal of care, Hospice)? DNR status @ -[No] What co-morbidities impacted this encounter? (DM, HTN, Smoking, COPD, CAD, Cancer, CVA, ARF, Chemo, Hep., AIDS, mental health diagnosis, sleep apnea, morbid obesity)? @ -[None] Was patient admitted / discharged? Hospital course, mention meds given and route, prescriptions, significant lab abnormalities, going to OR and other pertinent info. @ -[Patient is 28-year-old woman with pneumonia admitted for course of antibiotics, further evaluation and treatment. Undiagnosed new problem with uncertain prognosis? @ -[No] Drug Therapy requiring intensive monitoring for toxicity (Heparin, Nitro, Insulin, Cardizem)? @ -[No] Were any procedures done? @ -[No] Diagnosis/symptom? @ -[Acute pneumonia Acute, or Chronic, or Acute on Chronic? @ -[Acute Uncomplicated (without systemic symptoms) or Complicated (systemic symptoms)? @ -[Uncomplicated Side effects of treatment? @ -[No] Exacerbation, Progression, or Severe Exacerbation? @ -[No] Poses a threat to life or bodily function? How? (Chest pain, [place], [place], pneumonia, PE, COPD, DKA, ARF, appy, cholecystitis, CVA, Diverticulitis, Homicidal, Suicidal, threat to staff... and all critical care pts) @ -[There is risk of worsening to sepsis/respiratory failure but low risk Disposition Clinical Impression: Pneumonia Disposition: ADMITTED IP TO THIS HOSP Condition: Stable Is patient prescribed a controlled substance at d/c from ED?: No
[2024-02-09 23:52] LABS: Basophils % (A) 0 %; Eosinophils # (A) 0.1 k/uL (0-0.7); Eosinophils % (A) 1 %; HCT 33.5 % (34.0-46.0); HGB 10.9 gm/dL (11.4-16.0); Hypochromasia Slight; Lymphocytes # (A) 2.9 k/uL (1.0-4.8); Lymphocytes % (A) 19 %; MCH 22.8 pg (25.0-35.0); MCHC 32.6 g/dL (31.0-37.0); Mean Platelet Volume 8.5; Microcytosis Moderate; Monocytes # (A) 0.6 k/uL (0-1.0); Monocytes % (A) 4 %; Neutrophils # (A) 11.5 k/uL (1.3-7.7); Neutrophils % (A) 75 %; Platelet Count 231 k/uL (150-450); RBC 4.78 m/uL (3.80-5.40); RDW 14.9 % (11.5-15.5); WBC 15.3 k/uL (3.8-10.6)
--- NOTE | 2024-02-09 23:54 | XR ---
EXAMINATION TYPE: XR chest 2V DATE OF EXAM: 02/09/2024 COMPARISON: Prior chest x-ray November 09, 2019 HISTORY: Chest pain TECHNIQUE: Frontal and lateral views of the chest are obtained. FINDINGS: There is new lingular increased opacity seen on 2 views. Right lung is clear. The cardiac silhouette size is stable and within normal limits. The osseous structures are intact. IMPRESSION: There is new lingular acute infiltrate and/or atelectasis. [facility], , 02/09/2024 11:52 PM
[2024-02-09] MEDS: HYDROmorphone 1 MG/ML 1 ML SYRINGE IVP STA (23:56)
[2024-02-09] MEDS: SODIUM CHLORIDE 0.9% 500 ML 500 ML IV STA (23:57)
[2024-02-10 00:11] LABS: ALT 30 U/L (4-34); AST 24 U/L (14-36); African American GFR (CKD) >90 (>60 ml/min/1.73 sqM); Albumin 4.4 g/dL (3.5-5.0); Alkaline Phosphatase 105 U/L (38-126); Anion Gap 11 mmol/L; Blood Urea Nitrogen 11 mg/dL (7-17); Calcium 9.6 mg/dL (8.4-10.2); Carbon Dioxide 19 mmol/L (22-30); Chloride 107 mmol/L (98-107); Glucose 126 mg/dL (74-99); Magnesium 1.7 mg/dL (1.6-2.3); Non-African American GFR(CKD) >90 (>60 ml/min/1.73 sqM); Potassium 3.6 mmol/L (3.5-5.1); Sodium 137 mmol/L (137-145); Total Bilirubin 0.8 mg/dL (0.2-1.3); Total Protein 7.1 g/dL (6.3-8.2)
[2024-02-10] MEDS: ENOXAPARIN 100 MG/ML SYRINGE SQ ONE (00:13)
[2024-02-10 00:18] LABS: Partial Thromboplastin Time 23.6 sec (22.0-30.0); Prothrombin Time 11.3 sec (10.0-12.5)
[2024-02-10] MEDS: HYDROmorphone 1 MG/ML 1 ML SYRINGE IVP STA (01:13)
[2024-02-10] MEDS: AZITHROMYCIN 500 MG TAB PO STA (01:24)
[2024-02-10] MEDS: KETOROLAC 15 MG/ML 1 ML VIAL IVP STA (01:24)
[2024-02-10] MEDS: SODIUM CHLORIDE 0.9% 1,000 ML IV ONE (03:09)
[2024-02-10] MEDS ORDERED: PNEUMONIA PROTOCOL UTILIZED 1 EACH MISC PO PRN (06:57)
[2024-02-10] MEDS ORDERED: ONDANSETRON ODT 4 MG TAB PO PRN (07:02)
[2024-02-10] MEDS ORDERED: metFORMIN 500 MG TAB PO SCH (09:00)
--- NOTE | 2024-02-10 09:42 | US ---
EXAMINATION TYPE: US venous doppler duplex LE BI DATE OF EXAM: 02/10/2024 9:30 AM COMPARISON: NONE CLINICAL INDICATION: Female, 28 years old with history of Leg pain; TECHNIQUE: The lower extremity deep venous system is examined utilizing real time linear array sonog [place] with graded compression, color doppler sonography, and spectral doppler. SIDE PERFORMED: Bilateral FINDINGS: VESSELS IMAGED: Common Femoral Vein Deep Femoral Vein Greater Saphenous Vein * Femoral Vein Popliteal Vein Small Saphenous Vein * Proximal Calf Veins (* superficial vessels) Right Leg: Appears negative for DVT Left Leg: Visualized portions appear negative for DVT, unable to perform compression images at prox mid and distal femoral vein due to patient unable to tolerate probe pressure IMPRESSION: No ultrasound evidence for deep venous thrombosis. [facility], , 02/10/2024 9:40 AM
--- NOTE | 2024-02-10 13:18 | P.CNPUL ---
History of Present Illness Consult date: 02/10/24 Requesting physician: Emeterio Bunch Reason for consult: dyspnea, abnormal CXR/CT Chief complaint: Shortness of breath, cough, congestion History of present illness: This is a pleasant 28-year-old female patient with a known history of mild intermittent chronic bronchial asthma maintained on Trelegy and albuterol, anxiety/depression, chronic tobacco dependence, occasional marijuana use. Melida s vaping. She presented here to the emergency room last evening with complaints of increasing shortness of breath cough congestion and fever. She had been treated for an episode of bronchitis 2 weeks prior and had been feeling better until recently. Lower extremity edema and pain. Chest x-ray reveals a lingular acute infiltrate and/or atelectasis. White count 15.3. Hemoglobin 10.9. Platelets 231. Sodium 137. Potassium 3.6. Bicarb 19. BUN 11. Creatinine 0.65. Glucose 126. Viral screen negative. D-dimer 0.25. Doppler of the lower extremities were negative for DVT. She is seen today in consultation in the emergency department. She is currently sitting up on a stretcher. Awake and alert in no acute distress. She is maintaining good O2 saturations in the 90s on room air. She has been afebrile. Hemodynamically stable. She has been initiated on ceftriaxone and azithromycin. Review of Systems REVIEW OF SYSTEMS: CONSTITUTIONAL: Denies any recent significant weight loss or weight gain. EYES: Denies change in vision. EARS, NOSE, MOUTH, THROAT: Denies headaches, denies sore throat. CARDIOVASCULAR: Denies chest pain, palpitations or syncopal episodes. RESPIRATORY: Positive for shortness of breath, cough, congestion no hemoptysis. GASTROINTESTINAL: Denies change in appetite, denies abdominal pain GENITOURINARY: Denies hematuria, denies infections. MUSKULOSKELETAL: Positive for lower extremity pain and swelling. INTEGUMENTARY: Denies rash, denies eczema. NEUROLOGICAL: Denies recent memory loss, no recent seizure activity. PSYCHIATRIC: Denies anxiety, denies depression. HEMATOLOGIC/LYMPHATIC: Denies anemia, denies enlarged lymph nodes. Past Medical History Past Medical History: Asthma, Diabetes Mellitus Additional Past Medical History / Comment(s): Hx fractured right ankle, hx Gestational Diabetes, kidney stones currently and past. History of Any Multi-Drug Resistant Organisms: MRSA Date of last positivie culture/infection: 12/04 MDRO Source:: back of neck Past Surgical History: Section, Tonsillectomy, Tubal Ligation Additional Past Surgical History / Comment(s): Section X3, lithotripsy Past Anesthesia/Blood Transfusion Reactions: Motion Sickness Past Psychological History: Anxiety, Depression Smoking Status: Current every day smoker Past Alcohol Use History: Occasional Past Drug Use History: Marijuana - Past Family History Father Family Medical History: No Reported History Medications and Allergies Home Medications Medication Instructions Recorded Confirmed Type Albuterol Sulfate [Proair Hfa] 2 puff INHALATION RT-QID PRN 11/13/20 02/10/24 History Azithromycin [Zithromax] 0 mg PO DIRECTED #6 tab 02/10/24 Rx Dextroamphetamine/Amphetamine 12.5 mg PO DAILY 02/10/24 02/10/24 History [Adderall] Fluticasone/Umeclidin/Vilanter 1 puff INHALATION DIRECTED 02/10/24 02/10/24 History [Trelegy Ellipta 200-62.5-25] Allergies Allergy/AdvReac Type Severity Reaction Status Date / Time amoxicillin Allergy Rash/Hives Verified 02/10/24 07:45 Penicillins Allergy Rash/Hives Verified 02/10/24 07:45 Physical Exam Vitals: Vital Signs Temp Pulse Resp BP Pulse Ox 02/10/24 12:50 97.4 F L 82 16 131/85 99 02/10/24 09:49 98.0 F 82 16 118/87 100 02/10/24 06:30 97.0 F L 73 18 125/84 100 02/10/24 04:25 77 18 99/74 99 02/10/24 01:39 86 20 113/69 100 02/10/24 00:03 105 H 20 124/97 98 02/09/24 22:56 98.2 F 123 H 20 160/115 99 Intake and Output 02/09/24 02/10/24 02/10/24 22:59 06:59 14:59 Other: Weight 87.997 kg GENERAL EXAM: Alert, pleasant 28-year-old female, on room air, fairly comfortable in no apparent distress. HEAD: Normocephalic. EYES: Normal reaction of pupils, equal size. NOSE: Clear with pink turbinates. THROAT: No erythema or exudates. NECK: No masses, no JVD. CHEST: No chest wall deformity. LUNGS: Equal air entry with no crackles, wheeze, rhonchi or dullness. CVS: S1 and S2 normal with no audible murmur, regular rhythm. ABDOMEN: No hepatosplenomegaly, normal bowel sounds, no guarding or rigidity. SPINE: No scoliosis or deformity SKIN: No rashes CENTRAL NERVOUS SYSTEM: No focal deficits, tone is normal in all 4 extremities. EXTREMITIES: There is 1+ peripheral edema. No clubbing, no cyanosis. Peripheral pulses are intact. Results - Laboratory Findings CBC and BMP: 02/09/24 23:28 02/09/24 23:28 PT/INR, D-dimer PT 11.3 sec (10.0-12.5) 02/09/24 23:28 INR 1.0 (<1.2) 02/09/24 23:28 D-Dimer 0.25 mg/L FEU (<0.60) 02/09/24 23:26 Abnormal lab findings: Abnormal Labs 02/09/24 02/09/24 23:28 23:28 WBC 15.3 H Hgb 10.9 L Hct 33.5 L MCV 70.0 L MCH 22.8 L Neutrophils # 11.5 H Carbon Dioxide 19 L Glucose 126 H - Diagnostic Findings Chest x-ray: image reviewed Assessment and Plan Assessment: Dyspnea with cough and congestion suspect early infiltrate/atelectasis of the lingula. Procalcitonin pending Acute exacerbation of mild intermittent chronic bronchial asthma Chronic tobacco dependence Marijuana use History of anxiety/depression Plan: The patient was seen and evaluated Chest x-ray, labs and medications reviewed Continue antibiotics for now Check a procalcitonin Add Symbicort, albuterol Currently stable and on room air Follow-up chest x-ray in a.m. We will continue to follow and make further recommendations based on her clinical status I have personally seen and examined the patient, performed the documentation and the assessment and plan as written. Number of minutes spent on the visit: 20 Dictation was produced using [employer] dictation software. Please excuse any grammatical, word or spelling errors.
[2024-02-10] MEDS: HYDROcodone/APAP 5-325MG 1 EACH TAB PO PRN (13:49)
[2024-02-10] MEDS: SYMBICORT 160-4.5 MCG INHALER INHALATION SCH (20:33)
--- NOTE | 2024-02-11 08:19 | XR ---
EXAMINATION TYPE: XR chest 2V DATE OF EXAM: 02/11/2024 COMPARISON: 02/09/2024 HISTORY: Chest pain TECHNIQUE: Frontal and lateral views of the chest are obtained. FINDINGS: Persistent but improving lingular infiltrate. No evidence for pneumothorax. No pleural effusion. The cardiac silhouette size is within normal limits. The osseous structures are grossly intact. IMPRESSION: 1. Persistent but improving lingular infiltrate. [facility], , 02/11/2024 8:17 AM
[2024-02-11 08:26] VITALS: BP 119/74; RESP 16; TEMP 98
--- NOTE | 2024-02-11 08:42 | P.HPIM ---
History of Present Illness H&P Date: 02/10/24 Conchita Medina is a 28 yo F with PMH of tobacco abuse, asthma on Trelegy and albuterol, anxiety/depression, occasional marijuana use who presented to the ED complaing of cough, shortness of breath and L sided chest tightness over the past week. She complains she has been dealing with upper respiratory symptoms for about a month and had been treated as an outpatient both at her PCP office and urgent care, initally with steroids and a zpak and then with augmentin. She feels both of these regimens helped but did not resolve her symptoms. Chest x- ray reveals a lingular acute infiltrate and/or atelectasis. White count 15.3. Hemoglobin 10.9. Platelets 231. Sodium 137. Potassium 3.6. Bicarb 19. BUN 11. Creatinine 0.65. Glucose 126. D-dimer 0.25. Doppler of the lower extremities were negative for DVT. She is maintaining good O2 saturations in the 90s on room air. She has been afebrile. Hemodynamically stable. She has been initiated on ceftriaxone and azithromycin. Review of Systems All systems: negative Constitutional: Denies chills, Denies fever Eyes: denies blurred vision, denies pain Ears, nose, mouth and throat: Denies headache, Denies sore throat Cardiovascular: Denies chest pain, Denies shortness of breath Respiratory: Reports as per HPI, Reports cough Gastrointestinal: Denies abdominal pain, Denies diarrhea, Denies nausea, Denies vomiting Genitourinary: Denies dysuria, Denies hematuria Musculoskeletal: Denies myalgias Integumentary: Denies pruritus, Denies rash Neurological: Denies numbness, Denies weakness Psychiatric: Denies anxiety, Denies depression Endocrine: Denies fatigue, Denies weight change Past Medical History Past Medical History: Asthma, Diabetes Mellitus Additional Past Medical History / Comment(s): Hx fractured right ankle, hx Gestational Diabetes, kidney stones currently and past. History of Any Multi-Drug Resistant Organisms: MRSA Date of last positivie culture/infection: 12/04 MDRO Source:: back of neck Past Surgical History: Section, Tonsillectomy, Tubal Ligation Additional Past Surgical History / Comment(s): Section X3, lithotripsy Past Anesthesia/Blood Transfusion Reactions: Motion Sickness Past Psychological History: Anxiety, Depression Smoking Status: Current every day smoker Past Alcohol Use History: Occasional Past Drug Use History: Marijuana Additional Drug Use History / Comment(s): Uses Marijuana use once every 1-2 w eeks. - Past Family History Father Family Medical History: No Reported History Medications and Allergies Home Medications Medication Instructions Recorded Confirmed Type Albuterol Sulfate [Proair Hfa] 2 puff INHALATION RT-QID PRN 11/13/20 02/10/24 History Azithromycin [Zithromax] 0 mg PO DIRECTED #6 tab 02/10/24 Rx Dextroamphetamine/Amphetamine 12.5 mg PO DAILY 02/10/24 02/10/24 History [Adderall] Fluticasone/Umeclidin/Vilanter 1 puff INHALATION DIRECTED 02/10/24 02/10/24 History [Trelemathew Ellipta 200-62.5-25] Allergies Allergy/AdvReac Type Severity Reaction Status Date / Time amoxicillin Allergy Rash/Hives Verified 02/10/24 07:45 Penicillins Allergy Rash/Hives Verified 02/10/24 07:45 Physical Exam Vitals: Vital Signs Temp Pulse Pulse Resp BP BP Pulse Ox 02/11/24 07:00 98.0 F 77 16 119/74 98 02/11/24 02:00 98.4 F 74 17 108/71 97 02/10/24 20:00 98.4 F 84 17 124/76 99 02/10/24 14:43 16 02/10/24 14:41 98.2 F 77 18 128/89 100 02/10/24 12:50 97.4 F L 82 16 131/85 99 02/10/24 09:49 98.0 F 82 16 118/87 100 Intake and Output 02/10/24 02/11/24 02/11/24 22:59 06:59 14:59 Intake Total 540 Balance 540 Intake: Oral 540 Other: # Voids 1 2 Gen: well developed, well nourished NAD HEENT: NC/AT, mmm Neck: supple, no JVD or thyromegaly CV: RRR, no murmur Lungs: CTAB. Rales at L base Abd: soft nontender, non distended Neuro: AAOx3, no focal deficit Skin: warm and dry Results CBC & Chem 7: 02/09/24 23:28 02/09/24 23:28 Thrombosis Risk Factor Assmnt - Choose All That Apply Any of the Below Risk Factors Present?: No Other Risk Factors: No Thrombosis Risk Factor Assessment Level: Very Low Risk Assessment and Plan Plan: CAP of LML. Admit, consult pulmonology, start rocephin and azithromycin. Continue with inhaler and obtain sputum culture
[2024-02-11] MEDS: ALBUTEROL NEBULIZED 2.5 MG/3 ML INHALATION PRN (08:48)
[2024-02-11 08:52] VITALS: PULSE 85
--- NOTE | 2024-02-11 10:17 | CT ---
EXAMINATION TYPE: CT angio chest CT DLP: 581 mGycm, Automated exposure control for dose reduction was used. DATE OF EXAM: 02/11/2024 10:07 AM COMPARISON: Chest radiograph 02/11/2024 CLINICAL INDICATION:Female, 28 years old with history of Chest pain, dyspnea; Chest pain, dyspnea TECHNIQUE/CONTRAST: CTA scan of the thorax is performed with IV Contrast, patient injected with 100 mL of Isovue 370, pul monary embolism protocol. MIP images are created and reviewed. FINDINGS: Pulmonary Artery: There is no evidence for a filling defect within the pulmonary vasculature to sugge st acute pulmonary embolism. The pulmonary artery is of normal size. Lungs/Pleura: No evidence of pleural effusion or pneumothorax. Lingular consolidation with scattered patchy groundglass nodular opacities within the right upper lobe, right middle and bilateral lower lo bes. Airway: Large airways are patent. Heart: Heart is within normal limits for size.. No pericardial effusion. Vasculature: No evidence of aortic aneurysm. Mediastinum: Mildly prominent left hilar lymph nodes. Musculoskeletal: No acute osseous abnormalities Soft Tissues: Unremarkable. Lower neck: No significant findings. Upper Abdomen: No significant findings. IMPRESSION: 1. No evidence of pulmonary embolism. 2. Lingular consolidation with scattered patchy groundglass opacities throughout the lungs most consi stent with pneumonia. 3. Reactive mildly prominent left hilar lymph nodes secondary to #2. [facility], , 02/11/2024 10:15 AM
[2024-02-11] MEDS ORDERED: AZITHROMYCIN 500 MG TAB PO SCH (12:00)
--- NOTE | 2024-02-11 12:36 | P.PN ---
Subjective Progress Note Date: 02/11/24 This is a pleasant 28-year-old female patient with a known history of mild intermittent chronic bronchial asthma maintained on Trelegy and albuterol, anxiety/depression, chronic tobacco dependence, occasional marijuana use. Denies vaping. She presented here to the emergency room last evening with complaints of increasing shortness of breath cough congestion and fever. She had been treated for an episode of bronchitis 2 weeks prior and had been feeling better until recently. Lower extremity edema and pain. Chest x-ray reveals a lingular acute infiltrate and/or atelectasis. White count 15.3. Hemoglobin 10.9. Platelets 231. Sodium 137. Potassium 3.6. Bicarb 19. BUN 11. Creatinine 0.65. Glucose 126. Viral screen negative. D-dimer 0.25. Doppler of the lower extremities were negative for DVT. She is seen today in consultation in the emergency department. She is currently sitting up on a stretcher. Awake and alert in no acute distress. She is maintaining good O2 saturations in the 90s on room air. She has been afebrile. Hemodynamically stable. She has been initiated on ceftriaxone and azithromycin. The patient is seen today February 11, 2024 in follow-up on the regular medical floor. She is currently sitting up in bed. Awake and alert in no acute distress. She is maintaining good O2 saturations in the 90s on room air. Her procalcitonin was negative at 0.04. A CT angiogram ruled out pulmonary embolism. There is a lingular consolidation with scattered patchy groundglass opacities throughout the lungs mostly consistent with pneumonia. Legionella screen was negative. Objective - Vital Signs Vital signs: Vital Signs Temp 98.0 F 02/11/24 07:00 Pulse 85 02/11/24 08:49 Resp 16 02/11/24 07:00 BP 119/74 02/11/24 07:00 Pulse Ox 96 02/11/24 08:49 FiO2 Intake & Output 02/10/24 02/11/24 02/11/24 18:59 06:59 18:59 Intake Total 540 118 Balance 540 118 Weight 87.997 kg Intake: Oral 540 118 Other: # Voids 2 - Exam GENERAL EXAM: Alert, 28-year-old female, on room air, comfortable in no apparent distress. HEAD: Normocephalic. EYES: Normal reaction of pupils, equal size. NOSE: Clear with pink turbinates. THROAT: No erythema or exudates. NECK: No masses, no JVD. CHEST: No chest wall deformity. LUNGS: Equal air entry with no crackles, wheeze, rhonchi or dullness. CVS: S1 and S2 normal with no audible murmur, regular rhythm. ABDOMEN: No hepatosplenomegaly, normal bowel sounds, no guarding or rigidity. SPINE: No scoliosis or deformity SKIN: No rashes CENTRAL NERVOUS SYSTEM: No focal deficits, tone is normal in all 4 extremities. EXTREMITIES: There is no peripheral edema. No clubbing, no cyanosis. Peripheral pulses are intact. - Labs CBC & Chem 7: 02/09/24 23:28 02/09/24 23:28 Assessment and Plan Assessment: Dyspnea with cough and congestion suspect early infiltrate/atelectasis of the lingula. Procalcitonin negative at 0.04. CT angiogram ruled out pulmonary embolism. There is consolidation noted in the lingula with some ground glass patchy opacities throughout. Legionella screen negative. Acute exacerbation of mild intermittent chronic bronchial asthma Chronic tobacco dependence Marijuana use History of anxiety/depression Plan: The patient was seen and evaluated CT angiogram, labs and medications reviewed Continue Symbicort, albuterol Currently stable and on room air Cleared for discharge Recommend 1 week of Levaquin Follow-up with Dr. Ramos in 1 week May require outpatient bronchoscopy I have personally seen and examined the patient, performed the documentation and the assessment and plan as written. Number of minutes spent on the visit: 10 Dictation was produced using [employer] dictation software. Please excuse any grammatical, word or spelling errors.
--- NOTE | 2024-02-13 19:06 | P.DS ---
Providers Date of admission: 02/10/24 06:57 Expected date of discharge: 02/11/24 Attending physician: Emeterio Bunch MD Consults: 02/10/24 06:57 Consult Physician Routine Consulting Provider: Jean-Claude Ramos Consult Reason/Comments: pneumonia Do you want consulting provider notified?: Yes Primary care physician: Emeterio Bunch MD Hospital Course: Final Diagnoses: CAP of LML Acute exacerbation of mild intermittent chronic asthma Nicotine dependence Want to use Hospital course:Conchita Medina is a 28 yo F with PMH of tobacco abuse, asthma on Trelegy and albuterol, anxiety/depression, occasional marijuana use who presented to the ED complaing of cough, shortness of breath and L sided chest tightness over the past week. She complains she has been dealing with upper respiratory symptoms for about a month and had been treated as an outpatient both at her PCP office and urgent care, initally with steroids and a zpak and then with augmentin. She feels both of these regimens helped but did not resolve her symptoms. Chest x-ray reveals a lingular acute infiltrate and/or atelectasis. White count 15.3. Hemoglobin 10.9. Platelets 231. Sodium 137. Potassium 3.6. Bicarb 19. BUN 11. Creatinine 0.65. Glucose 126. D-dimer 0.25. Doppler of the lower extremities were negative for DVT. She is maintaining good O2 saturations in the 90s on room air. She has been afebrile. Hemodynamically stable. She has been initiated on ceftriaxone and azithromycin. Maintained on Rocephin, azithromycin bronchodilators. Evaluated in treated by pulmonary. Significant clinical improvement. Procalcitonin normal. Denies chest pain, palpitations or shortness of breath. Maintaining O2 sats in the 90s on room air. Chest CTA reported 1)no evidence of pulmonary embolism. 2 )Lingular consolidation with scattered patchy groundglass opacities throughout the lungs consistent with pneumonia. 3) Reactive mildly prominent left hilar lymph node secondary to #2. Legionella negative. Smoking sensation reinforced. Patient will be discharged home today in a stable condition with guarded prognosis pending final DC recommendations and clearance per pulmonary. The impression and plan of care has been dictated as directed. : I performed a history and examination of this patient, discussed the same with the dictator. I agree with the dictator's note ,documented as a scribe. Any additional findings or plans will be noted. Patient Condition at Discharge: Stable Plan - Discharge Summary Discharge Rx Participant: No New Discharge Prescriptions: New Azithromycin [Zithromax] 0 mg PO DIRECTED #6 tab Levofloxacin [Levaquin] 500 mg PO DAILY 10 Days #10 tab Continue Albuterol Sulfate [Proair Hfa] 2 puff INHALATION RT-QID PRN PRN Reason: Shortness Of Breath Fluticasone/Umeclidin/Vilanter [Trelegy Ellipta 200-62.5-25] 1 puff INH ALATION DIRECTED Dextroamphetamine/Amphetamine [Adderall] 12.5 mg PO DAILY Discharge Medication List Albuterol Sulfate [Proair Hfa] 2 puff INHALATION RT-QID PRN 11/13/20 [History] Azithromycin [Zithromax] 0 mg PO DIRECTED #6 tab 02/10/24 [Rx] Dextroamphetamine/Amphetamine [Adderall] 12.5 mg PO DAILY 02/10/24 [History] Fluticasone/Umeclidin/Vilanter [Trelegy Ellipta 200-62.5-25] 1 puff INHALATION DIRECTED 02/10/24 [History] Levofloxacin [Levaquin] 500 mg PO DAILY 10 Days #10 tab 02/11/24 [Rx] Follow up Appointment(s)/Referral(s): Jean-Claude Ramos MD [STAFF PHYSICIAN] - 02/26/24 2:00 pm Emeterio Bunch MD [Primary Care Provider] - 1-2 days Patient Instructions/Handouts: Pneumonia (ED) Discharge Disposition: HOME SELF-CARE
== END 2024-02-11 13:15 | disposition home or self-care (01) ==
LOC: EC 22:49 → 6NMEDSUR 02-10 06:57
PROVIDERS: ADMIT Family Medicine; ATTEND Family Medicine
DX: J18.9 Pneumonia, unspecified organism (principal); J44.0 Chronic obstructive pulmonary disease with (acute) lower respiratory infection; J45.901 Unspecified asthma with (acute) exacerbation; F17.200 Nicotine dependence, unspecified, uncomplicated; F41.9 Anxiety disorder, unspecified; F32.A Depression, unspecified; R60.0 Localized edema; Z79.51 Long term (current) use of inhaled steroids; Z79.899 Other long term (current) drug therapy; Z88.0 Allergy status to penicillin
CPT/HCPCS: 96376; 96361; 96365; 96372; 96375 ×2; 99285; 36415; 94640 ×3; 94760; 93005; 85379; 83880; 80053; 87449; 83735; 84484; 85025; 85610; 85730; 87040; 84145; 87636; 71046 ×2; 93970; 71275; G0378 ×2; J0696; J1650; J1171 ×2; J1885; Q9967

== ENCOUNTER 2024-05-12 03:21 | Observation (INO) | payer OTHER ==
[2024-05-12] MEDS: KETOROLAC 15 MG/ML 1 ML VIAL IVP STA (03:38)
[2024-05-12] MEDS: ONDANSETRON 4 MG/2 ML VIAL IVP STA ×2 (03:49→07:29)
[2024-05-12] MEDS: MORPHINE SULFATE 4 MG/ML SYRINGE IVP STA ×2 (03:51→05:13)
--- NOTE | 2024-05-12 03:58 | ED ---
General Adult HPI - General Chief complaint: Urogenital Stated complaint: Abd Pain Time Seen by Provider: 05/12/24 03:30 Source: patient Mode of arrival: ambulatory Limitations: no limitations - History of Present Illness Initial comments: Patient is a 28-year-old female past medical history of prior kidney stones, prior tubal ligation presenting today for left flank pain. Pain began earlier this evening wraps around her left lower quadrant. States feels like prior kidney stones. No medications prior to arrival. Was waiting at [facility] but states that she waited in the waiting room for 3 hours and was not seen so came here. Patient endorses nausea and vomiting and when asked how many times this has occurred, she states "a lot". Emesis is nonbloody nonbilious. She denies any chest pain, shortness of breath, dizziness, he adaches. Denies hematuria but states that she does have some discomfort around her urethra. She denies vaginal discharge states that she just finished her period so she did have a small mount of vaginal bleeding. Denies chance of . Only allergies penicillins. - Related Data Home Medications Medication Instructions Recorded Confirmed Albuterol Sulfate [Ventolin HFA] 2 puff INHALATION RT-Q4H PRN 05/12/24 05/12/24 Dextroamphetamine/Amphetamine 7.5 mg PO BID 05/12/24 05/12/24 [Adderall] Previous Rx's Medication Instructions Recorded HYDROcodone/APAP 5-325MG [[place] 1 - 2 tab PO Q6HR PRN #10 tab 05/14/24 5-325] Ketorolac [Toradol] 10 mg PO Q6HR PRN #10 tab 05/14/24 Oxybutynin ER [Ditropan XL] 10 mg PO DAILY #7 tab 05/14/24 Sulfamethox-Tmp 800-160Mg [Bactrim 1 tab PO Q12HR #10 tab 05/14/24 DS 800-160 mg] Tamsulosin [Flomax] 0.4 mg PO DAILY #7 cap 05/14/24 Allergies Allergy/AdvReac Type Severity Reaction Status Date / Time amoxicillin Allergy Rash/Hives Verified 05/12/24 07:29 Penicillins Allergy Rash/Hives Verified 05/12/24 07:29 Review of Systems ROS Statement: Those systems with pertinent positive or pertinent negative responses have been documented in the HPI. ROS Other: All systems not noted in ROS Statement are negative. Past Medical History Past Medical History: Asthma, Diabetes Mellitus Additional Past Medical History / Comment(s): Hx fractured right ankle, hx Gestational Diabetes, kidney stones currently and past. History of Any Multi-Drug Resistant Organisms: MRSA Date of last positivie culture/infection: 12/04 MDRO Source:: back of neck Past Surgical History: Section, Tonsillectomy, Tubal Ligation Additional Past Surgical History / Comment(s): Section X3, lithotripsy Past Anesthesia/Blood Transfusion Reactions: Motion Sickness Past Psychological History: Anxiety, Depression Smoking Status: Current every day smoker Past Alcohol Use History: Occasional Past Drug Use History: Marijuana - Past Family History Father Family Medical History: No Reported History General Exam - General Exam Comments Initial Comments: PE: CONSTITUTIONAL: In distress and uncomfortable appearing secondary to pain, ot herwise well appearing SKIN: Warm, dry, no jaundice, hives or petechiae EYES: Pupils are equally round, extraocular movements intact without nystagmus, clear conjunctiva, non-icteric sclera HENT: Normocephalic, atraumatic, moist mucus membranes, oropharynx clear without exudates NECK: , Full range of motion, normal appearance PULMONARY: Clear to auscultation without wheezes, rhonchi, or rales, normal excursion, no accessory muscle use and no stridor CARDIOVASCULAR: Regular rate, rhythm, normal S1 and S2. No appreciated murmurs, rubs or gallops. Strong radial pulses with intact distal perfusion. No lower extremity edema GASTROINTESTINAL: Soft, active bowel sounds throughout, tenderness to palpation in the left lower quadrant as well as left CVA tenderness, guarding with palpation of the left CVA, . No hepatosplenomegaly GENITOURINARY: MUSCULOSKELETAL: Extremities have no gross deformity, no edema, redness, or swelling. No calf swelling NEUROLOGIC:_a/o x 3, GCS 15, normal mentation and speech. Moves all extremities x 4 without motor or sensory deficit PSYCHIATRIC:_normal mood and affect, thought process is clear and linear Limitations: no limitations Course Vital Signs 05/12/24 05/12/24 05/12/24 03:22 03:44 05:16 Temperature 98.3 F Pulse Rate 111 H 80 66 Pulse Rate [ Right Sitting] Respiratory 24 17 19 Rate Blood Pressure 165/71 142/86 131/87 Blood Pressure [Sitting] O2 Sat by Pulse 99 100 98 Oximetry 05/12/24 10:04 Temperature 98 F Pulse Rate Pulse Rate [ 78 Right Sitting] Respiratory 18 Rate Blood Pressure Blood Pressure 148/79 [Sitting] O2 Sat by Pulse 98 Oximetry Medical Decision Making - Medical Decision Making Was pt. sent in by a medical professional or institution (, PA, DAIRY C[employer]LE FARM MANAGER, urgent care, hospital, or long-term...) When possible be specific @ -No Did you speak to anyone other than the patient for history (EMS, parent, family, police, friend...)? What history was obtained from this source @ -No Did you review nursing and triage notes (agree or disagree)? Why? @ -I reviewed nursing and triage notes Were old charts reviewed (outside hosp., previous admission, EMS record, old EKG, old radiological studies, urgent care reports/EKG's, long-term records)? Report findings @ -Medical records reviewed pt here 02/10/24 for shortness of breath, CTA chest done during that admission showed no PE, showed findings consistent w/ possible PNA Differential Diagnosis (chest pain, altered mental status, abdominal pain women, abdominal pain men, vaginal bleeding, weakness, fever, dyspnea, syncope, headache, dizziness, GI bleed, back pain, seizure, CVA, palpatations, mental health, musculoskeletal)? @ -Not applicable differential Abdominal Pain Women: Appendicitis, Cholecystitis, diverticulosis, ischemic bowel, pancreatitis, hepatitis, UTI, gastroenteritis, bowel obstruction, constipation, inflammatory bowel, peptic ulcer disease, perforated viscus, ovarian torsion, PID, kidney stone this is not meant to be an all-inclusive list. Though ovarian pathology was considered, pt's pain and exam, as well as history are more consistent with ureterothiasis, so will begin w/ CT stone study and consider further imaging if stone study nondiagnostic or clinical pictures changes EKG interpreted by me (3pts min.). @ -As above CT interpreted by me (1pt min.). @ Ureterolithiasis noted at left UVJ or w/in bladder with mild left hydronephrosis U/S interpreted by me (1pt. min.). @ -None done What testing was considered but not performed or refused? (CT, X-rays, U/S, labs)? Why? @ -None What meds were considered but not given or refused? Why? @ -None Did you discuss the management of the patient with other professionals (professionals i.e. , PA, [employer] FARM MANAGER, lab, RT, psych nurse, social economist, batch unit treater, teacher, credit products officer, skilled nursing case manager)? Give summary @ -No Was smoking cessation discussed for >3mins.? @ -No Was critical care preformed (if so, how long)? @ -No Were there social determinants of health that impacted care today? How? (Homelessness, low income, unemployed, alcoholism, drug addiction, transportation, low edu. Level, literacy, decrease access to med. care, senior care, rehab)? @ -No Was there de-escalation of care discussed even if they declined (Discuss DNR or withdrawal of care, Hospice)? @ -No What co-morbidities impacted this encounter? (DM, HTN, Smoking, COPD, CAD, Cancer, CVA, ARF, Chemo, Hep., AIDS, mental health diagnosis, sleep apnea, morbid obesity)? @ -None Was patient admitted /. Discharged? Hospital course, mention meds given and route, prescriptions, significant lab abnormalities, going to OR and other pertinent info. @ -Admission- Patient is a previously well 28-year-old female history kidney stones presenting for 1 night of left flank pain nausea and vomiting. Patient afebrile, vital signs within acceptable limits on arrival. On my assessment patient is painful appearing, moaning in pain and unable to lie still. Exam significant for left CVA tenderness and left lower quadrant tenderness palpation. Patient states feels like prior kidney stones. Will obtain CT abdomen pelvis without contrast, basic labs, urinalysis. Patient will be given Toradol and morphine for pain control she is agreeable with plan of care. Patient continue to have pain despite Toradol. Additional dose of morphine given. Labs reviewed,Significant for mild leukocytosis, white blood cell count 12.2 with neutrophils of 8.4, I suspect this is more likely secondary to vomiting as opposed to acute infection, CMP largely unremarkable with normal kidney function, creatinine of 0.85, urinalysis shows turbid urine, 1+ protein, 1+ ketones large amount of blood negative nitrates, trace leukocyte esterase 29 red cells 9 white cells, 8 squamous cells, this appears to be a contaminated specimen so at this time we will hold off on antibiotics. I reviewed patient CT scan personally, appears that there is a kidney stone either within the bladder or at the left UVJ, pending radiologist read. Reassessed patient she continues to be uncomfortable, Dilaudid was ordered. Updated her to findings thus far and pending CT scan. CT scan impression significant for "a 4 mm stone at the left ureterovesicular junction with mild hydronephrosis". Due to patient's persistent pain and hydronephrosis, discussed case with Dr. Denney, kindly accepts patient for admission, request KUB to be performed. Updated patient to findings and plan of care, she is agreeable plan for admission. Undiagnosed new problem with uncertain prognosis? @ -No Drug Therapy requiring intensive monitoring for toxicity (Heparin, Nitro, Insulin, Cardizem)? @ -No Were any procedures done? @ -No Diagnosis/symptom? Ureterolithiasis Acute, or Chronic, or Acute on Chronic? Acute Uncomplicated (without systemic symptoms) or Complicated (systemic symptoms)? complicated Side effects of treatment? @ -No Exacerbation, Progression, or Severe Exacerbation? @ -No Poses a threat to life or bodily function? How? (Chest pain, [place], [place], pneumonia, PE, COPD, DKA, ARF, appy, cholecystitis, CVA, Diverticulitis, Homicidal, Suicidal, threat to staff... and all critical care pts) @ -No - Lab Data Result diagrams: 05/12/24 03:57 05/12/24 03:57 Lab Results 05/12/24 05/12/24 05/12/24 Range/Units 03:57 03:57 04:21 WBC 12.2 H (3.8-10.6) k/uL RBC 5.39 (3.80-5.40) m/uL Hgb 12.1 (11.4-16.0) gm/dL Hct 37.4 (34.0-46.0) % MCV 69.4 L (80.0-100.0) fL MCH 22.4 L (25.0-35.0) pg MCHC 32.3 (31.0-37.0) g/dL RDW 15.1 (11.5-15.5) % Plt Count 245 (150-450) k/uL MPV 9.2 Neutrophils % 69 % Lymphocytes % 22 % Monocytes % 4 % Eosinophils % 3 % Basophils % 0 % Neutrophils # 8.4 H (1.3-7.7) k/uL Lymphocytes # 2.7 (1.0-4.8) k/uL Monocytes # 0.5 (0-1.0) k/uL Eosinophils # 0.4 (0-0.7) k/uL Basophils # 0.1 (0-0.2) k/uL Hypochromasia Slight Microcytosis Marked Sodium 136 L (137-145) mmol/L Potassium 3.9 (3.5-5.1) mmol/L Chloride 102 (98-107) mmol/L Carbon Dioxide 24 (22-30) mmol/L Anion Gap 10 mmol/L BUN 15 (7-17) mg/dL Creatinine 0.85 (0.52-1.04) mg/dL Est GFR (CKD-EPI)AfAm >90 (>60 ml/min/1.73 sqM) Est GFR (CKD-EPI)NonAf >90 (>60 ml/min/1.73 sqM) Glucose 113 H (74-99) mg/dL Calcium 10.1 (8.4-10.2) mg/dL Total Bilirubin 1.2 (0.2-1.3) mg/dL AST 28 (14-36) U/L ALT 36 H (4-34) U/L Alkaline Phosphatase 111 (38-126) U/L Total Protein 7.6 (6.3-8.2) g/dL Albumin 4.7 (3.5-5.0) g/dL Lipase 130 (23-300) U/L HCG, Qual Not Detected Urine Color Yellow Urine Appearance Turbid H (Clear) Urine pH 8.0 (5.0-8.0) Ur Specific [place] 1.016 (1.001-1.035) Urine Protein 1+ H (Negative) Urine Glucose (UA) Negative (Negative) Urine Ketones 1+ H (Negative) Urine Blood Large H (Negative) Urine Nitrite Negative (Negative) Urine Bilirubin Negative (Negative) Urine Urobilinogen <2.0 (<2.0) mg/dL Ur Leukocyte Esterase Trace H (Negative) Urine RBC 29 H (0-5) /hpf Urine WBC 9 H (0-5) /hpf Ur Squamous Epith Cells 8 H (0-4) /hpf Amorphous Sediment Moderate H (None) /hpf Urine Mucus Few H (None) /hpf Disposition Clinical Impression: Ureterolithiasis Disposition: ADMITTED IP TO THIS HOSP Condition: Stable
[2024-05-12 04:14] LABS: Basophils # (A) 0.1 k/uL (0-0.2); Basophils % (A) 0 %; Eosinophils # (A) 0.4 k/uL (0-0.7); Eosinophils % (A) 3 %; HCT 37.4 % (34.0-46.0); HGB 12.1 gm/dL (11.4-16.0); Hypochromasia Slight; Lymphocytes # (A) 2.7 k/uL (1.0-4.8); Lymphocytes % (A) 22 %; MCH 22.4 pg (25.0-35.0); MCHC 32.3 g/dL (31.0-37.0); MCV 69.4 fL (80.0-100.0); Mean Platelet Volume 9.2; Microcytosis Marked; Monocytes # (A) 0.5 k/uL (0-1.0); Monocytes % (A) 4 %; Neutrophils # (A) 8.4 k/uL (1.3-7.7); Neutrophils % (A) 69 %; Platelet Count 245 k/uL (150-450); RBC 5.39 m/uL (3.80-5.40); RDW 15.1 % (11.5-15.5); WBC 12.2 k/uL (3.8-10.6)
[2024-05-12] MEDS: SODIUM CHLORIDE 0.9% 2,000 ML IV ONE (04:16)
[2024-05-12 04:23] LABS: HCG,Qualitative Serum Not Detected
[2024-05-12 04:25] LABS: ALT 36 U/L (4-34); AST 28 U/L (14-36); African American GFR (CKD) >90 (>60 ml/min/1.73 sqM); Albumin 4.7 g/dL (3.5-5.0); Alkaline Phosphatase 111 U/L (38-126); Anion Gap 10 mmol/L; Blood Urea Nitrogen 15 mg/dL (7-17); Calcium 10.1 mg/dL (8.4-10.2); Carbon Dioxide 24 mmol/L (22-30); Chloride 102 mmol/L (98-107); Glucose 113 mg/dL (74-99); Lipase 130 U/L (23-300); Non-African American GFR(CKD) >90 (>60 ml/min/1.73 sqM); Potassium 3.9 mmol/L (3.5-5.1); Sodium 136 mmol/L (137-145); Total Bilirubin 1.2 mg/dL (0.2-1.3); Total Protein 7.6 g/dL (6.3-8.2)
[2024-05-12 04:56] LABS: Amorphous Sediment,Urine Moderate /hpf; Appearance,Urine Turbid (Clear); Bilirubin,Urine Negative (Negative); Blood,Urine Large (Negative); Color,Urine Yellow; Glucose,Urine (UA) Negative (Negative); Ketones,Urine 1+ (Negative); Leukocyte Esterase,Urine Trace (Negative); Mucus,Urine Few /hpf; Nitrite,Urine Negative (Negative); Protein,Urine 1+ (Negative); RBC,Urine 29 /hpf (0-5); Specific Gravity,Urine 1.016 (1.001-1.035); Squamous Epithelial Cell,Urine 8 /hpf (0-4); Urobilinogen,Urine <2.0 mg/dL (<2.0); WBC,Urine 9 /hpf (0-5)
[2024-05-12] MEDS: TAMSULOSIN 0.4 MG CAP.ER.24H PO STA (05:13)
--- NOTE | 2024-05-12 05:15 | CT ---
EXAM: CT Abdomen and Pelvis Without Intravenous Contrast CLINICAL HISTORY: pt arrives to ED for c/o lower back pain. Painful urination and hematuria. Left flank pain TECHNIQUE: Axial computed tomography images of the abdomen and pelvis without intravenous contrast. CTDI is 11.2 mGy and DLP is 665.2 mGy-cm. This CT exam was performed using one or more of the following dose reduction techniques: automated exposure control, adjustment of the mA and/or kV according to patient size, and/or use of iterative reconstruction technique. Coronal and sagittal reformatted images were created and reviewed. 431 images COMPARISON: 06/12/2014 FINDINGS: Lung bases: Unremarkable. No mass. No consolidation. ABDOMEN: Liver: Unremarkable. Gallbladder and bile ducts: Unremarkable. No calcified stones. No ductal dilation. Pancreas: Unremarkable. No ductal dilation. Spleen: Unremarkable. No splenomegaly. Adrenals: Unremarkable. No mass. Kidneys and ureters: 4 mm obstructing left vesicoureteral junction stone causes mild hydroureter and hydronephrosis. Extensive calcifications of corticomedullary junction of each kidney are again noted Stomach and bowel: Unremarkable. No obstruction. No mucosal thickening. PELVIS: Appendix: No findings to suggest acute appendicitis. Bladder: Unremarkable. No stones. Reproductive: Unremarkable as visualized. ABDOMEN and PELVIS: Intraperitoneal space: Unremarkable. No free air. No significant fluid collection. Bones/joints: No acute findings. Soft tissues: Unremarkable. Vasculature: Unremarkable. No abdominal aortic aneurysm. Lymph nodes: Unremarkable. No enlarged lymph nodes. IMPRESSION: 4 mm obstructing left vesicoureteral junction stone causes mild hydroureter and hydronephrosis. 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 Please correlate with metabolic workup.
[2024-05-12] MEDS: HYDROmorphone 1 MG/ML 1 ML SYRINGE IVP STA (05:53)
--- NOTE | 2024-05-12 06:53 | XR ---
EXAM: XR Abdomen, 2 Views CLINICAL HISTORY: ITS.REASON XR Reason: Reassess stone location TECHNIQUE: Frontal view of the abdomen/pelvis with upright view of the abdomen. COMPARISON: CT dated 05/12/2021 FINDINGS: Intraperitoneal space: No free air. Gastrointestinal tract: Unremarkable. No dilation. Bones/joints: Unremarkable. No acute fracture. Other findings: Calcific density is seen overlying the expected location of the left ureterovesicular junction. IMPRESSION: Nonsteroidal bowel gas pattern.
[2024-05-12] MEDS ORDERED: NALOXONE 0.4 MG/ML 1 ML VIAL IV PRN (07:21)
--- NOTE | 2024-05-12 09:02 | P.GSHP ---
History of Present Illness H&P Date: 05/12/24 Chief Complaint: Left renal colic The patient is a 28-year-old white female with a history of kidney stones. Last night at approximately 11 PM, she experienced acute onset of left flank and abdominal pain, associated with urinary urgency. She did note a fever of 102 degrees yesterday. She presented to the ER, and CT scan showed evidence of mild left hydroureteronephrosis due to a 4 mm left UVJ calculus. She was admitted with intractable pain. - Constitutional Constitutional: Reports fever, Denies chills - Gastrointestinal Gastrointestinal: Reports nausea, Reports vomiting - Genitourinary (Female) Genitourinary: Reports flank pain, Reports kidney stones, Reports urgency, Denies hematuria Past Medical History Past Medical History: Asthma, Diabetes Mellitus Additional Past Medical History / Comment(s): Hx fractured right ankle, hx Gestational Diabetes, kidney stones currently and past. History of Any Multi-Drug Resistant Organisms: MRSA Date of last positivie culture/infection: 12/04 MDRO Source:: back of neck Past Surgical History: Section, Tonsillectomy, Tubal Ligation Additional Past Surgical History / Comment(s): Section X3, lithotripsy Past Anesthesia/Blood Transfusion Reactions: Motion Sickness Past Psychological History: Anxiety, Depression Smoking Status: Current every day smoker Past Alcohol Use History: Occasional Past Drug Use History: Marijuana - Past Family History Father Family Medical History: No Reported History Medications and Allergies Home Medications Medication Instructions Recorded Confirmed Type Albuterol Sulfate [Ventolin HFA] 2 puff INHALATION RT-Q4H PRN 05/12/24 05/12/24 History Dextroamphetamine/Amphetamine 7.5 mg PO BID 05/12/24 05/12/24 History [Adderall] Allergies Allergy/AdvReac Type Severity Reaction Status Date / Time amoxicillin Allergy Rash/Hives Verified 05/12/24 07:29 Penicillins Allergy Rash/Hives Verified 05/12/24 07:29 Surgical - Exam Vital Signs Temp Pulse Resp BP Pulse Ox 98.3 F 111 H 24 165/71 99 05/12/24 03:22 05/12/24 03:22 05/12/24 03:22 05/12/24 03:22 05/12/24 03:22 - General well developed, well nourished, moderate distress - Respiratory normal respiratory effort - Abdomen Soft, non-distended, no mass. Mild left-sided tenderness, no guarding or rebound. - Psychiatric oriented to time, oriented to person, oriented to place, speech is normal, memory intact Results - Labs 05/12/24 03:57 05/12/24 03:57 Abnormal Lab Results - Last 24 Hours (Table) 05/12/24 05/12/24 05/12/24 Range/Units 03:57 03:57 04:21 WBC 12.2 H (3.8-10.6) k/uL MCV 69.4 L (80.0-100.0) fL MCH 22.4 L (25.0-35.0) pg Neutrophils # 8.4 H (1.3-7.7) k/uL Sodium 136 L (137-145) mmol/L Glucose 113 H (74-99) mg/dL ALT 36 H (4-34) U/L Urine Appearance Turbid H (Clear) Urine Protein 1+ H (Negative) Urine Ketones 1+ H (Negative) Urine Blood Large H (Negative) Ur Leukocyte Esterase Trace H (Negative) Urine RBC 29 H (0-5) /hpf Urine WBC 9 H (0-5) /hpf Ur Squamous Epith Cells 8 H (0-4) /hpf Amorphous Sediment Moderate H (None) /hpf Urine Mucus Few H (None) /hpf Diabetes panel 05/12/24 Range/Units 03:57 Sodium 136 L (137-145) mmol/L Potassium 3.9 (3.5-5.1) mmol/L Chloride 102 (98-107) mmol/L Carbon Dioxide 24 (22-30) mmol/L BUN 15 (7-17) mg/dL Creatinine 0.85 (0.52-1.04) mg/dL Glucose 113 H (74-99) mg/dL Calcium 10.1 (8.4-10.2) mg/dL AST 28 (14-36) U/L ALT 36 H (4-34) U/L Alkaline Phosphatase 111 (38-126) U/L Total Protein 7.6 (6.3-8.2) g/dL Albumin 4.7 (3.5-5.0) g/dL Calcium panel 05/12/24 Range/Units 03:57 Calcium 10.1 (8.4-10.2) mg/dL Albumin 4.7 (3.5-5.0) g/dL Pituitary panel 05/12/24 Range/Units 03:57 Sodium 136 L (137-145) mmol/L Potassium 3.9 (3.5-5.1) mmol/L Chloride 102 (98-107) mmol/L Carbon Dioxide 24 (22-30) mmol/L BUN 15 (7-17) mg/dL Creatinine 0.85 (0.52-1.04) mg/dL Glucose 113 H (74-99) mg/dL Calcium 10.1 (8.4-10.2) mg/dL Adrenal panel 05/12/24 Range/Units 03:57 Sodium 136 L (137-145) mmol/L Potassium 3.9 (3.5-5.1) mmol/L Chloride 102 (98-107) mmol/L Carbon Dioxide 24 (22-30) mmol/L BUN 15 (7-17) mg/dL Creatinine 0.85 (0.52-1.04) mg/dL Glucose 113 H (74-99) mg/dL Calcium 10.1 (8.4-10.2) mg/dL Total Bilirubin 1.2 (0.2-1.3) mg/dL AST 28 (14-36) U/L ALT 36 H (4-34) U/L Alkaline Phosphatase 111 (38-126) U/L Total Protein 7.6 (6.3-8.2) g/dL Albumin 4.7 (3.5-5.0) g/dL - Imaging Abdominal x-ray: report reviewed, image reviewed CT scan - abdomen: report reviewed, image reviewed Assessment and Plan (1) Calculus of ureter Current Visit: Yes Status: Acute Code(s): N20.1 - CALCULUS OF URETER SNOMED Code(s): 30956059 (2) Hydronephrosis with renal and ureteral calculous obstruction Current Visit: Yes Status: Acute Code(s): N13.2 - HYDRONEPHROSIS WITH RENAL AND URETERAL CALCULOUS OBSTRUCTION SNOMED Code(s): 126466155 Plan: I had a lengthy discussion with the patient regarding her UVJ calculus. I explained to her that the stone has a 90% chance of passing, and that typically our goal would be to manage her with medical expulsion therapy. However, she is concerned about work and request that the stone be removed. Arrangements have been made for this to be performed today via ureteroscopy with laser lithotripsy and possible stent insertion. She has previously undergone the procedure and is thus familiar with it, including potential risks. The procedure will be performed either by myself or Dr. Turner. Time with Patient: Greater than 30
[2024-05-12] MEDS: LACTATED RINGERS 1,000 ML IV ONE (10:06)
[2024-05-12] MEDS: DEXAMETHASONE SOD PHOSPHATE 4 MG/ML 1 ML VIAL IVP STA (10:24)
[2024-05-12] MEDS: METOCLOPRAMIDE 5 MG/ML 2 ML VIAL IVP STA (10:30)
[2024-05-12] MEDS ORDERED: MIDAZOLAM 2 MG/2 ML VIAL ONE (10:41)
[2024-05-12] MEDS ORDERED: SUCCINYLCHOLINE CHLORIDE 200 MG/10 ML VIAL IV ONE (10:41)
[2024-05-12] MEDS ORDERED: LIDOCAINE 1% INJ 10MG/ML (20 ML MDV) ONE (10:41)
[2024-05-12] MEDS ORDERED: fentaNYL (PF) 50 MCG/ML 2 ML AMP ONE (10:41)
[2024-05-12] MEDS ORDERED: PROPOFOL 10 MG/ML 20 ML VIAL IV ONE (10:41)
[2024-05-12] MEDS ORDERED: ALBUTEROL NEBULIZED 2.5 MG/3 ML INHALATION PRN (11:15)
[2024-05-12] MEDS ORDERED: ACETAMINOPHEN TAB 325 MG TAB PO PRN (11:15)
--- NOTE | 2024-05-12 11:23 | P.OP ---
Date of Procedure: 05/12/24 Preoperative Diagnosis: Left ureteral calculus with obstruction and colic Postoperative Diagnosis: Same Procedure(s) Performed: Left ureteroscopy with laser lithotripsy, placement of 624 stent Anesthesia: DAWSON Surgeon: Joe Turner Estimated Blood Loss (ml): 0 Pathology: other Indications for Procedure: Patient is 28. She is awakened early this morning with severe left flank pain and colic. She does have a history of stones. She stated that she had some fever. She came to the emergency room. She is found to have severe colic. A CT scan identified a 4 to 5 mm distal ureteral stone on the left with obstruction. White count was 12,000. Urinalysis was clear. She will undergo cystoscopy probable left ureteroscopy and laser lithotripsy probable left double-J catheter. If the urine visually or the bladder looks infected she will undergo strictly a stent if there does not appear to be an infection I will remove the stone but probably place a stent because of the history of a possible fever. Description of Procedure: Patient brought to the operating suite. Given a general anesthetic. Placed lithotomy position with a sterile prep and drape. The urethra was intubated with the 21 Khmer sheath. The urine is grossly normal. The bladder was inspected in its entirety and is also normal. Both ureteral orifice ease are normal. Semirigid ureteroscope was passed up to the stone. With the 375 m laser probe the stone was broken into tiny fragments and flushed out of the ureter. I passed the scope more proximally and do not see any remaining stones. Through the scope an 035 wire was then passed up into the ureter. I remove the ureteroscope and backloaded a 6 x 24 double-J catheter the coils in the renal pelvis and in the bladder. The bladder was drained the patient is awake in recovery room The patient will have the stent and be admitted overnight because of her history of fever just to make sure there is no evidence of sepsis. If not she can be discharged home tomorrow and the stent can be removed in the office in 1 week.
--- NOTE | 2024-05-12 11:27 | FL ---
EXAMINATION TYPE: FL guidance operating room DATE OF EXAM: 05/12/2024 11:20 AM COMPARISON: Pre Operative Images if available both CT/MRI or plain film CLINICAL INDICATION: Female, 28 years old with history of L SIDE CALCULUS; TECHNIQUE: FL guidance operating room, multiple fluoroscopic images provided for procedure. Total fluoroscopy time: 1.2 seconds Total submitted images to PACS: 2 DAP: [id number] mGym2 Gycm2 uGym2 cGycm2 or equivalent. FINDINGS: Multiple intraoperative fluoroscopic images were taken. Left calculus not well appreciated. Well appr eciated. No extravasation of contrast. Immediate intraoperative complication. Multilevel degeneration changes throughout the spine. IMPRESSION: 1. No evidence for intraoperative complication. 2. Please see the operative/procedural note for further details. [facility], , 05/12/2024 11:25 AM
[2024-05-12] MEDS: KETOROLAC 15 MG/ML 1 ML VIAL IVP PRN (12:43)
[2024-05-12] MEDS: HYDROmorphone 0.5 MG/0.5 ML SYRINGE IVP PRN (13:08)
[2024-05-12] MEDS: DEXTROSE 5%-0.45% NACL 1,000 ML IV SCH (15:48)
[2024-05-12] MEDS: droPERidol 2.5 MG/ML VIAL IVP STA (15:48)
[2024-05-12] MEDS: PANTOPRAZOLE 40 MG/10 ML VIAL IV SCH (15:49)
[2024-05-12] MEDS: MORPHINE SULFATE 4 MG/ML SYRINGE IV PRN (15:50)
[2024-05-12 20:47] LABS: Glucose,Whole Blood 174 mg/dL (70-110)
[2024-05-12] MEDS: AMPHETAMINE PO SCH (20:56)
[2024-05-12] MEDS: DEXTROAMPHETAMINE PO SCH (20:56)
[2024-05-13] MEDS: ONDANSETRON 4 MG/2 ML VIAL IVP PRN (04:06)
[2024-05-13 06:52] LABS: Glucose,Whole Blood 122 mg/dL (70-110)
[2024-05-13] MEDS: OXYBUTYNIN 10 MG TAB.ER.24 PO SCH (12:15)
[2024-05-13] MEDS: HYDROcodone/APAP 5-325MG 1 EACH TAB PO PRN (18:23)
--- NOTE | 2024-05-13 20:34 | P.PN ---
Subjective Progress Note Date: 05/13/24 Principal diagnosis: Left renal colic The patient underwent ureteroscopic removal of her left ureteral calculus yesterday. A ureteral stent was placed. When seen this morning, she continued to report significant left-sided pain despite taking tamsulosin, and not adequately relieved by Toradol. Objective - Vital Signs Vital signs: Vital Signs Temp 98.0 F 05/13/24 13:13 Pulse 78 05/13/24 13:13 Resp 18 05/13/24 13:13 BP 113/71 05/13/24 13:13 Pulse Ox 97 05/13/24 13:13 FiO2 Intake & Output 05/13/24 05/13/24 05/14/24 06:59 18:59 06:59 Intake Total 540 Balance 540 Intake: Oral 540 Other: Voiding Method Toilet Toilet Toilet # Voids 3 4 - Constitutional General appearance: Present: average body habitus, cooperative, mild distress - Psychiatric Psychiatric: Present: A&O x's 3 - Labs CBC & Chem 7: 05/12/24 03:57 05/12/24 03:57 Labs: Abnormal Lab Results - Last 24 Hours (Table) 05/12/24 05/13/24 Range/Units 20:46 06:51 POC Glucose (mg/dL) 174 H 122 H (70-110) mg/dL Assessment and Plan (1) Calculus of ureter Current Visit: Yes Status: Acute Code(s): N20.1 - CALCULUS OF URETER SNOMED Code(s): 38845191 (2) Hydronephrosis with renal and ureteral calculous obstruction Current Visit: Yes Status: Acute Code(s): N13.2 - HYDRONEPHROSIS WITH RENAL AND URETERAL CALCULOUS OBSTRUCTION SNOMED Code(s): 910958508 Plan: - Continue tamsulosin. - Continue antibiotics and antiemetics. - Continue analgesics. - Oxybutynin chloride has been prescribed.
[2024-05-14 08:34] VITALS: RESP 18
--- NOTE | 2024-05-14 12:31 | P.DS ---
Providers Date of admission: 05/12/24 07:21 Expected date of discharge: 05/14/24 Attending physician: Manny Marx Primary care physician: Emeterio Bunch MD - Discharge Diagnosis(es) (1) Calculus of ureter Current Visit: Yes Status: Acute (2) Hydronephrosis with renal and ureteral calculous obstruction Current Visit: Yes Status: Acute Hospital Course: The patient is a 28-year-old white female admitted with left renal colic due to a 4 mm left distal ureteral calculus. Urinalysis was consistent with contamination, but she did report a low-grade fever. She underwent ureteroscopic removal of the calculus and was treated with IV antibiotics. She remained afebrile throughout the hospitalization. At the time of discharge, her pain had started to improve. Procedures: Cystoscopy, left ureteroscopy with laser lithotripsy, left ureteral stent insertion on May 14, 2024. Patient Condition at Discharge: Fair Plan - Discharge Summary Discharge Rx Participant: No New Discharge Prescriptions: New Oxybutynin ER [Ditropan XL] 10 mg PO DAILY #7 tab Ketorolac [Toradol] 10 mg PO Q6HR PRN #10 tab PRN Reason: Pain Sulfamethox-Tmp 800-160Mg [Bactrim DS 800-160 mg] 1 tab PO Q12HR #10 tab Tamsulosin [Flomax] 0.4 mg PO DAILY #7 cap HYDROcodone/APAP 5-325MG [[place] 5-325] 1 - 2 tab PO Q6HR PRN #10 tab PRN Reason: Severe Pain (Scale 7 To 10) No Action Albuterol Sulfate [Ventolin HFA] 2 puff INHALATION RT-Q4H PRN PRN Reason: Shortness Of Breath Dextroamphetamine/Amphetamine [Adderall] 7.5 mg PO BID Discharge Medication List Albuterol Sulfate [Ventolin HFA] 2 puff INHALATION RT-Q4H PRN 05/12/24 [History] Dextroamphetamine/Amphetamine [Adderall] 7.5 mg PO BID 05/12/24 [History] HYDROcodone/APAP 5-325MG [[place] 5-325] 1 - 2 tab PO Q6HR PRN #10 tab 05/14/24 [Rx] Ketorolac [Toradol] 10 mg PO Q6HR PRN #10 tab 05/14/24 [Rx] Oxybutynin ER [Ditropan XL] 10 mg PO DAILY #7 tab 05/14/24 [Rx] Sulfamethox-Tmp 800-160Mg [Bactrim DS 800-160 mg] 1 tab PO Q12HR #10 tab 05/14/24 [Rx] Tamsulosin [Flomax] 0.4 mg PO DAILY #7 cap 05/14/24 [Rx] Follow up Appointment(s)/Referral(s): Emeterio Bunch MD [Primary Care Provider] - 1-2 days Activity/Diet/Wound Care/Special Instructions: Diet as tolerated. Activity as tolerated. Follow-up with Dr. Turner or Dr. Funez on May 17 or May 18 for office cystoscopy with stent removal. Discharge Disposition: HOME SELF-CARE
[2024-05-14 14:04] VITALS: BP 136/84; PULSE 65; TEMP 97.8
== END 2024-05-14 15:25 | disposition home or self-care (01) ==
LOC: EC 03:21 → 6NMEDSUR 07:21 → 4SSUR 12:11
PROVIDERS: ADMIT Urology; ATTEND Urology
DX: N13.2 Hydronephrosis with renal and ureteral calculous obstruction (principal); D72.829 Elevated white blood cell count, unspecified; I10 Essential (primary) hypertension; J45.909 Unspecified asthma, uncomplicated; F17.200 Nicotine dependence, unspecified, uncomplicated; Z88.0 Allergy status to penicillin; Z79.899 Other long term (current) drug therapy; Z87.442 Personal history of urinary calculi; Z98.51 Tubal ligation status
CPT/HCPCS: 96376; 96374; 96375; 99285; 36415; 81025; 80053; 83690; 85025; 81001; 84703; 82365; 74018; 74176; 52356; G0378 ×4; C2625; C1769; J2250; J0330; J2270 ×3; J1100; J2765; J0690 ×5; J2405 ×2; J2003; J3010; J1171 ×2; J1885 ×2; J2704; J2470 ×2